=== PATIENT | male | born 1955 | race African-American/Black ===

== ENCOUNTER 2017-06-28 14:11 | Outpatient (CLI) | payer BC | END 2017-06-28 15:53 | disposition home or self-care (01) | LOC: HPC 14:11 | DX: C22.0 Liver cell carcinoma (principal); K43.2 Incisional hernia without obstruction or gangrene | CPT/HCPCS: G0463 ==

== ENCOUNTER 2017-09-08 19:51 | Inpatient (IN) | payer BC ==
[2017-09-08] MEDS: LORAZEPAM 2 MG INJ IV (20:01)
[2017-09-08 20:28] LABS: ADD MAN DIFF? NO
[2017-09-08 20:29] LABS: BASOPHILS % 0.1 % (0.0-2.0); EOSINOPHILS % 0.5 % (0.0-7.0); HEMATOCRIT 30.9 % (42.0-52.0); HEMOGLOBIN 10.3 g/dl (14.0-18.0); LYMPHOCYTES # 0.6 10^3/ul (0.8-2.9); MEAN CORPUSCULAR HEMOGLOBIN 28.2 pg (29.0-33.0); MEAN CORPUSCULAR HGB CONC 33.3 g/dl (32.0-37.0); MEAN CORPUSCULAR VOLUME 84.7 fl (82.0-101.0); MONOCYTE # 0.7 10^3/ul (0.3-0.9); MONOCYTES % 9.3 % (0.0-11.0); NEUTROPHIL # 6.1 10^3/ul (1.6-7.5); NEUTROPHILS % 81.3 % (39.0-77.0); PLATELET COUNT 299 10^3/UL (140-415); RED BLOOD COUNT 3.65 10^6/ul (4.70-6.10); RED CELL DISTRIBUTION WIDTH 15.1 % (11.5-14.5)
[2017-09-08 20:29] LABS: WHITE BLOOD COUNT 7.5 10^3/ul (4.8-10.8)
[2017-09-08 20:51] LABS: ALANINE AMINOTRANSFERASE 92 IU/L (13-69); ALBUMIN 2.9 g/dl (3.3-4.9); ALBUMIN/GLOBULIN RATIO 0.78; ANION GAP 15 (8-16); ASPARTATE AMINO TRANSFERASE 284 IU/L (15-46); BILIRUBIN,INDIRECT 0.4 mg/dl (0-1.1); BILIRUBIN,TOTAL 1.3 mg/dl (0.2-1.3); BLOOD UREA NITROGEN 24 mg/dl (7-20); CALCIUM 8.5 mg/dl (8.4-10.2); CARBON DIOXIDE 27 mmol/L (21-31); CHLORIDE 95 mmol/L (97-110); CREATININE 2.02 mg/dl (0.61-1.24); GLUCOSE 86 mg/dl (70-220); PARTIAL THROMBOPLASTIN TIME 31.3 Sec (25.0-35.0); POTASSIUM 3.4 mmol/L (3.5-5.1); PROTIME 12.2 Sec (11.9-14.9); SODIUM 134 mmol/L (135-144); TOTAL PROTEIN 6.6 g/dl (6.1-8.1)
[2017-09-08 20:53] LABS: LACTIC ACID 4.2 mmol/L (0.5-2.0)
[2017-09-08 21:07] LABS: ALKALINE PHOSPHATASE 2263 IU/L (42-121)
[2017-09-08 21:19] LABS: TROPONIN-I < 0.012 ng/ml (0.00-0.12)
[2017-09-08 21:33] LABS: ADD UMIC YES; UR ASCORBIC ACID NEGATIVE (NEGATIVE); UR BILIRUBIN (Dip) NEGATIVE (NEGATIVE); UR BLOOD (Dip) NEGATIVE (NEGATIVE); UR CLARITY CLEAR (CLEAR); UR COLOR YELLOW (YELLOW); UR GLUCOSE (Dip) 2+ mg/dL (NEGATIVE); UR KETONES (Dip) NEGATIVE (NEGATIVE); UR LEUKOCYTE ESTERASE (Dip) NEGATIVE Leu/ul (NEGATIVE); UR NITRITE (Dip) NEGATIVE (NEGATIVE); UR RBC 0 /HPF (0-5); UR SPECIFIC GRAVITY (Dip) 1.008 (1.003-1.030); UR TOTAL PROTEIN (Dip) 2+ mg/dl (NEGATIVE); UR UROBILINOGEN (Dip) NEGATIVE (NEGATIVE); UR WBC 0 /HPF (0-5)
[2017-09-08 22:32] LABS: AMMONIA 12 umol/l (9-30); LACTIC ACID 1.3 mmol/L (0.5-2.0)
[2017-09-08] MEDS: DEXTROSE 5%-0.9% NACL 1,000 ML IV (22:51)
[2017-09-08] MEDS: DEXTROSE 50% 50 ML SYRINGE IV (22:51)
[2017-09-08] MEDS ORDERED: MAGNESIUM HYDROXIDE 30ML CUP PO (23:30)
[2017-09-08] MEDS ORDERED: morphine 2 MG INJ IV (23:30)
[2017-09-08] MEDS ORDERED: NACL 0.9% 3 ML SYG IV (23:30)
[2017-09-08] MEDS ORDERED: HYDROCODONE/APAP (5/325) TAB PO (23:30)
[2017-09-08] MEDS ORDERED: DOCUSATE SODIUM 100 MG CAP PO (23:30)
[2017-09-08] MEDS ORDERED: GLUCOSE GEL 15 GRAM TUBE PO ×2 (23:45)
[2017-09-08] MEDS ORDERED: DEXTROSE 50% 50 ML SYRINGE IV (23:45)
[2017-09-08] MEDS ORDERED: GLUCAGON 1 MG INJ IM (23:45)
[2017-09-08] MEDS ORDERED: GLUCOSE GEL 15 GRAM TUBE BUCCAL (23:45)
[2017-09-09 00:06] LABS: LACTIC ACID 1.4 mmol/L (0.5-2.0)
[2017-09-09 00:16] LABS: AADO2 Arterial 580.1 mmHg (7.0-24.0); Allen Test ACCEPTAB; Arterial Blood Gas Oxygen Sat 97.1 mmHG (95.0-98.0); Arterial COHb 0.3 % (0.0-3.0); Arterial Fraction of Oxyhgb 96.5 % (93.0-99.0); Arterial MetHb 0.3 % (0.0-1.5); Arterial Total Hemglobin 10.7 g/dl (12.0-18.0); Arterial pCO2 37.6 mmhg (35-45); MODE MASK - NRB; Site Left Radial
[2017-09-09] MEDS: NS + KCL 20 MEQ 1,000 ML IV (00:25)
[2017-09-09] MEDS: LEVETIRACETAM 500 MG (PMX) 100 ML IVPB ×3 (00:25→20:19)
[2017-09-09] MEDS: INSULIN ASPART [NOVOLOG] 3 ML PEN SC ×6 (01:00→20:24)
[2017-09-09] MEDS: DEXTROSE 50% 50 ML SYRINGE IV ×2 (01:26→02:16)
[2017-09-09] MEDS: ACCU-CHEK XX (01:35)
[2017-09-09] MEDS: D5-NS + KCL 20 MEQ 1,000 ML IV (02:08)
[2017-09-09 08:52] LABS: ADD MAN DIFF? NO
[2017-09-09 08:56] LABS: WHITE BLOOD COUNT 16.1 10^3/ul (4.8-10.8)
[2017-09-09 08:56] LABS: BASOPHILS % 0.1 % (0.0-2.0); HEMATOCRIT 27.1 % (42.0-52.0); HEMOGLOBIN 9.1 g/dl (14.0-18.0); LYMPHOCYTES # 0.7 10^3/ul (0.8-2.9); LYMPHOCYTES % 4.6 % (15.0-51.0); MEAN CORPUSCULAR HEMOGLOBIN 27.7 pg (29.0-33.0); MEAN CORPUSCULAR HGB CONC 33.6 g/dl (32.0-37.0); MEAN CORPUSCULAR VOLUME 82.6 fl (82.0-101.0); MEAN PLATELET VOLUME 9.5 fl (7.4-10.4); MONOCYTE # 0.9 10^3/ul (0.3-0.9); MONOCYTES % 5.6 % (0.0-11.0); NEUTROPHIL # 14.4 10^3/ul (1.6-7.5); NEUTROPHILS % 89.1 % (39.0-77.0); PLATELET COUNT 296 10^3/UL (140-415); RED BLOOD COUNT 3.28 10^6/ul (4.70-6.10)
[2017-09-09] MEDS: DEXTROSE 5%-0.9% NACL 1,000 ML IV ×2 (09:00→12:55)
[2017-09-09 09:24] LABS: LACTIC ACID 1.4 mmol/L (0.5-2.0)
[2017-09-09 09:24] LABS: AMMONIA 13 umol/l (9-30)
[2017-09-09 09:25] LABS: ALANINE AMINOTRANSFERASE 81 IU/L (13-69); ALBUMIN 2.2 g/dl (3.3-4.9); ALBUMIN/GLOBULIN RATIO 0.73; ANION GAP 9 (8-16); ASPARTATE AMINO TRANSFERASE 205 IU/L (15-46); BILIRUBIN,INDIRECT 0.1 mg/dl (0-1.1); BILIRUBIN,TOTAL 0.3 mg/dl (0.2-1.3); BLOOD UREA NITROGEN 22 mg/dl (7-20); CALCIUM 7.7 mg/dl (8.4-10.2); CARBON DIOXIDE 30 mmol/L (21-31); CHLORIDE 102 mmol/L (97-110); CREATININE 1.78 mg/dl (0.61-1.24); GLUCOSE 90 mg/dl (70-220); IRON 19 ug/dl (35-150); SODIUM 137 mmol/L (135-144); TOTAL PROTEIN 5.2 g/dl (6.1-8.1)
[2017-09-09 09:28] LABS: PHOSPHORUS 2.4 mg/dl (2.5-4.9)
[2017-09-09 09:28] LABS: MAGNESIUM 1.8 mg/dl (1.7-2.5)
[2017-09-09 09:33] LABS: ALKALINE PHOSPHATASE 1836 IU/L (42-121)
[2017-09-09 09:35] LABS: % IRON SATURATION 8 % SAT (22-52); TOTAL IRON BINDING CAPACITY 240 ug/dl (241-421)
[2017-09-09 09:53] LABS: HEMOGLOBIN A1C 7.8 % (0-5.9)
[2017-09-09] MEDS: SOD FERRIC GLUC COMPLX 125 MG in SOD CHLORIDE 0.9% 100 ML IVPB (18:29)
[2017-09-09] MEDS: DEXAMETHASONE 4 MG/ML 1 ML INJ IV (19:06)
[2017-09-09] MEDS ORDERED: VANCOMYCIN IV PER PHARMACY XX (20:00)
[2017-09-09] MEDS: VANCOMYCIN 2 GM in SOD CHLORIDE 0.9% 500 ML IVPB (22:39)
[2017-09-10] MEDS: DEXAMETHASONE 4 MG/ML 1 ML INJ IV ×5 (00:28→23:21)
[2017-09-10] MEDS: INSULIN ASPART [NOVOLOG] 3 ML PEN SC ×6 (01:00→20:24)
[2017-09-10] MEDS: DEXTROSE 5%-0.9% NACL 1,000 ML IV ×2 (01:20→17:38)
[2017-09-10] MEDS: ACCU-CHEK XX (02:00)
[2017-09-10] MEDS: PANTOPRAZOLE 40 MG INJ IV (05:16)
[2017-09-10] MEDS: LEVETIRACETAM 500 MG (PMX) 100 ML IVPB ×2 (08:31→20:23)
[2017-09-10] MEDS: LORAZEPAM 2 MG INJ IV (10:39)
[2017-09-10 11:14] LABS: ADD MAN DIFF? NO
[2017-09-10 11:18] LABS: ABNORMAL IP MESSAGE 1; BASOPHILS % 0.1 % (0.0-2.0); HEMATOCRIT 29.5 % (42.0-52.0); HEMOGLOBIN 9.6 g/dl (14.0-18.0); LYMPHOCYTES # 0.5 10^3/ul (0.8-2.9); LYMPHOCYTES % 6.4 % (15.0-51.0); MEAN CORPUSCULAR HEMOGLOBIN 27.7 pg (29.0-33.0); MEAN CORPUSCULAR HGB CONC 32.5 g/dl (32.0-37.0); MEAN CORPUSCULAR VOLUME 85.3 fl (82.0-101.0); MEAN PLATELET VOLUME 9.5 fl (7.4-10.4); MONOCYTE # 0.2 10^3/ul (0.3-0.9); MONOCYTES % 2.9 % (0.0-11.0); NEUTROPHIL # 6.9 10^3/ul (1.6-7.5); NEUTROPHILS % 90.1 % (39.0-77.0); PLATELET COUNT 349 10^3/UL (140-415); POSITIVE DIFF @See below; RED BLOOD COUNT 3.46 10^6/ul (4.70-6.10); RED CELL DISTRIBUTION WIDTH 15.2 % (11.5-14.5)
[2017-09-10 11:18] LABS: WHITE BLOOD COUNT 7.7 10^3/ul (4.8-10.8)
[2017-09-10 11:34] LABS: ANION GAP 16 (8-16); BLOOD UREA NITROGEN 21 mg/dl (7-20); CALCIUM 8.4 mg/dl (8.4-10.2); CARBON DIOXIDE 24 mmol/L (21-31); CHLORIDE 101 mmol/L (97-110); CREATININE 1.69 mg/dl (0.61-1.24); GLUCOSE 222 mg/dl (70-220); POTASSIUM 4.1 mmol/L (3.5-5.1); SODIUM 137 mmol/L (135-144)
[2017-09-10] MEDS: hydrALAzine 20 MG INJ IV (12:50)
[2017-09-10] MEDS: SOD FERRIC GLUC COMPLX 125 MG in SOD CHLORIDE 0.9% 100 ML IVPB (17:35)
[2017-09-10 19:55] LABS: ALPHA FETOPROTEIN 3.89 IU/L (0.00-7.21)
[2017-09-10 20:08] LABS: FOLATE 5.5 ng/ml (2.8-20.0)
[2017-09-11] MEDS: INSULIN ASPART [NOVOLOG] 3 ML PEN SC ×6 (01:18→21:33)
[2017-09-11] MEDS: ACCU-CHEK XX (01:23)
[2017-09-11] MEDS: LABETALOL HCL 20MG INJ IV (04:19)
[2017-09-11] MEDS: DEXAMETHASONE 4 MG/ML 1 ML INJ IV ×3 (05:11→18:44)
[2017-09-11] MEDS: PANTOPRAZOLE 40 MG INJ IV (05:11)
[2017-09-11 06:12] LABS: ADD MAN DIFF? NO
[2017-09-11 06:16] LABS: WHITE BLOOD COUNT 8.3 10^3/ul (4.8-10.8)
[2017-09-11 06:16] LABS: ABNORMAL IP MESSAGE 1; BASOPHILS % 0.1 % (0.0-2.0); HEMATOCRIT 26.7 % (42.0-52.0); LYMPHOCYTES # 0.5 10^3/ul (0.8-2.9); LYMPHOCYTES % 5.4 % (15.0-51.0); MEAN CORPUSCULAR HEMOGLOBIN 27.7 pg (29.0-33.0); MEAN CORPUSCULAR HGB CONC 33.7 g/dl (32.0-37.0); MEAN CORPUSCULAR VOLUME 82.2 fl (82.0-101.0); MONOCYTE # 0.5 10^3/ul (0.3-0.9); MONOCYTES % 6.4 % (0.0-11.0); NEUTROPHIL # 7.2 10^3/ul (1.6-7.5); NEUTROPHILS % 87.3 % (39.0-77.0); PLATELET COUNT 388 10^3/UL (140-415); POSITIVE DIFF @See below; RED BLOOD COUNT 3.25 10^6/ul (4.70-6.10)
[2017-09-11 06:48] LABS: VANCOMYCIN,RANDOM 12.1 ug/ml
[2017-09-11 06:52] LABS: ANION GAP 15 (8-16); BLOOD UREA NITROGEN 34 mg/dl (7-20); CALCIUM 8.3 mg/dl (8.4-10.2); CARBON DIOXIDE 22 mmol/L (21-31); CHLORIDE 107 mmol/L (97-110); CREATININE 1.95 mg/dl (0.61-1.24); GLUCOSE 319 mg/dl (70-220); SODIUM 140 mmol/L (135-144)
[2017-09-11] MEDS: hydrALAzine 20 MG INJ IV (08:27)
[2017-09-11] MEDS: LEVETIRACETAM 500 MG (PMX) 100 ML IVPB (08:28)
[2017-09-11] MEDS: VANCOMYCIN 1 GM 250 ML IVPB (12:46)
[2017-09-11] MEDS ORDERED: ALBUMIN HUMAN 25% 50 ML IV (13:30)
[2017-09-11] MEDS ORDERED: SODIUM CHLORIDE 0.9% 1L BAG IV (13:30)
[2017-09-11] MEDS ORDERED: IOHEXOL 300MG/ML 150 ML BTL (15:25)
[2017-09-11] MEDS ORDERED: SOD CHLORIDE 0.9% 100 ML (15:25)
[2017-09-11] MEDS: SOD FERRIC GLUC COMPLX 125 MG in SOD CHLORIDE 0.9% 100 ML IVPB (18:46)
[2017-09-11 20:26] LABS: HEPATITIS B SURFACE ANTIGEN NEGATIVE (NEGATIVE)
[2017-09-11] MEDS: LEVETIRACETAM 500 MG TAB PO (20:40)
[2017-09-12 00:02] LABS: HEPATITIS B SURFACE ANTIBODY NEGATIVE (NEGATIVE)
[2017-09-12] MEDS: DEXAMETHASONE 4 MG/ML 1 ML INJ IV ×4 (00:44→18:34)
[2017-09-12] MEDS: HEPARIN 1000 UNITS/ML 10 ML INJ CATHETER (00:47)
[2017-09-12] MEDS: ACCU-CHEK XX (02:00)
[2017-09-12 02:06] LABS: PROTEIN, TOTAL 5.7 g/dL (6.1-8.1)
[2017-09-12] MEDS: INSULIN ASPART [NOVOLOG] 3 ML PEN SC ×6 (02:12→21:25)
[2017-09-12] MEDS: LABETALOL HCL 20MG INJ IV ×3 (03:53→10:32)
[2017-09-12 06:44] LABS: ADD MAN DIFF? NO
[2017-09-12 06:50] LABS: WHITE BLOOD COUNT 12.9 10^3/ul (4.8-10.8)
[2017-09-12 06:50] LABS: ABNORMAL IP MESSAGE 1; BASOPHILS % 0.2 % (0.0-2.0); HEMATOCRIT 25.5 % (42.0-52.0); HEMOGLOBIN 8.5 g/dl (14.0-18.0); LYMPHOCYTES # 0.5 10^3/ul (0.8-2.9); LYMPHOCYTES % 3.7 % (15.0-51.0); MEAN CORPUSCULAR HEMOGLOBIN 27.6 pg (29.0-33.0); MEAN CORPUSCULAR HGB CONC 33.3 g/dl (32.0-37.0); MEAN CORPUSCULAR VOLUME 82.8 fl (82.0-101.0); MEAN PLATELET VOLUME 9.3 fl (7.4-10.4); MONOCYTE # 0.8 10^3/ul (0.3-0.9); MONOCYTES % 6.4 % (0.0-11.0); NEUTROPHIL # 11.5 10^3/ul (1.6-7.5); NEUTROPHILS % 89.2 % (39.0-77.0); PLATELET COUNT 409 10^3/UL (140-415); POSITIVE DIFF @See below; RED BLOOD COUNT 3.08 10^6/ul (4.70-6.10); RED CELL DISTRIBUTION WIDTH 15.1 % (11.5-14.5)
[2017-09-12 07:15] LABS: ANION GAP 13 (8-16); BLOOD UREA NITROGEN 22 mg/dl (7-20); CALCIUM 7.8 mg/dl (8.4-10.2); CARBON DIOXIDE 28 mmol/L (21-31); CHLORIDE 104 mmol/L (97-110); CREATININE 1.42 mg/dl (0.61-1.24); GLUCOSE 235 mg/dl (70-220); SODIUM 141 mmol/L (135-144)
[2017-09-12] MEDS: LEVETIRACETAM 500 MG TAB PO ×2 (09:19→21:23)
[2017-09-12] MEDS: ONDANSETRON 4 MG INJ IV (11:57)
[2017-09-12] MEDS: PANTOPRAZOLE 40 MG INJ IV (15:49)
[2017-09-12 16:26] LABS: ALPHA-1-GLOBULINS 0.6 g/dL (0.2-0.3); ALPHA-2-GLOBULINS 1.3 g/dL (0.5-0.9); BETA 2 GLOBULINS 0.5 g/dL (0.2-0.5); BETA GLOBULINS 0.4 g/dL (0.4-0.6); GAMMA GLOBULINS 0.9 g/dL (0.8-1.7)
[2017-09-12] MEDS: ATORVASTATIN 20 MG TAB PO (21:23)
[2017-09-13] MEDS: INSULIN ASPART [NOVOLOG] 3 ML PEN SC ×6 (01:16→20:04)
[2017-09-13] MEDS: ACCU-CHEK XX (01:21)
[2017-09-13] MEDS: PANTOPRAZOLE (EC) 40 MG TAB PO ×2 (05:41→18:01)
[2017-09-13] MEDS ORDERED: SODIUM CHLORIDE 0.9% 1L BAG IV (06:00)
[2017-09-13] MEDS ORDERED: PANTOPRAZOLE 40 MG INJ IV (06:00)
[2017-09-13] MEDS ORDERED: ALBUMIN HUMAN 25% 50 ML IV (06:00)
[2017-09-13 06:17] LABS: ADD MAN DIFF? NO
[2017-09-13 06:20] LABS: ABNORMAL IP MESSAGE 1; HEMATOCRIT 23.1 % (42.0-52.0); HEMOGLOBIN 7.8 g/dl (14.0-18.0); LYMPHOCYTES # 0.5 10^3/ul (0.8-2.9); LYMPHOCYTES % 5.2 % (15.0-51.0); MEAN CORPUSCULAR HGB CONC 33.8 g/dl (32.0-37.0); MEAN CORPUSCULAR VOLUME 82.8 fl (82.0-101.0); MEAN PLATELET VOLUME 9.6 fl (7.4-10.4); MONOCYTES % 10.6 % (0.0-11.0); NEUTROPHIL # 7.6 10^3/ul (1.6-7.5); NEUTROPHILS % 83.5 % (39.0-77.0); PLATELET COUNT 313 10^3/UL (140-415); POSITIVE DIFF @See below; RED BLOOD COUNT 2.79 10^6/ul (4.70-6.10); RED CELL DISTRIBUTION WIDTH 15.2 % (11.5-14.5)
[2017-09-13 06:51] LABS: ANION GAP 15 (8-16); BLOOD UREA NITROGEN 36 mg/dl (7-20); CALCIUM 7.5 mg/dl (8.4-10.2); CARBON DIOXIDE 27 mmol/L (21-31); CHLORIDE 100 mmol/L (97-110); CREATININE 2.21 mg/dl (0.61-1.24); GLUCOSE 255 mg/dl (70-220); POTASSIUM 3.9 mmol/L (3.5-5.1); SODIUM 138 mmol/L (135-144)
[2017-09-13] MEDS: LEVETIRACETAM 500 MG TAB PO ×2 (08:06→20:02)
[2017-09-13] MEDS: LISINOPRIL 20 MG TAB PO (09:00)
[2017-09-13] MEDS ORDERED: DIPHENHYDRAMINE 50 MG INJ IV (12:15)
[2017-09-13] MEDS: SUCRALFATE (100 MG/ML) 10ML CUP PO ×3 (13:10→20:02)
[2017-09-13] MEDS: ONDANSETRON 4 MG INJ IV (15:23)
[2017-09-13] MEDS: VANCOMYCIN 1 GM 250 ML IVPB (18:46)
[2017-09-13] MEDS ORDERED: hydrALAzine 20 MG INJ IV (20:00)
[2017-09-13] MEDS: ATORVASTATIN 20 MG TAB PO (20:02)
[2017-09-14] MEDS: INSULIN ASPART [NOVOLOG] 3 ML PEN SC ×7 (01:33→22:33)
[2017-09-14] MEDS: ACCU-CHEK XX (01:34)
[2017-09-14] MEDS: PANTOPRAZOLE (EC) 40 MG TAB PO ×2 (05:10→17:43)
[2017-09-14] MEDS: CEFTRIAXONE 1 GM/50 ML (PMX) 50 ML IVPB (05:10)
[2017-09-14 06:30] LABS: ADD MAN DIFF? NO
[2017-09-14 06:42] LABS: ABNORMAL IP MESSAGE 1; BASOPHILS % 0.1 % (0.0-2.0); EOSINOPHILS % 0.1 % (0.0-7.0); HEMATOCRIT 26.5 % (42.0-52.0); HEMOGLOBIN 8.7 g/dl (14.0-18.0); LYMPHOCYTES # 0.4 10^3/ul (0.8-2.9); LYMPHOCYTES % 4.4 % (15.0-51.0); MEAN CORPUSCULAR HEMOGLOBIN 27.5 pg (29.0-33.0); MEAN CORPUSCULAR HGB CONC 32.8 g/dl (32.0-37.0); MEAN CORPUSCULAR VOLUME 83.9 fl (82.0-101.0); MEAN PLATELET VOLUME 9.7 fl (7.4-10.4); MONOCYTE # 0.5 10^3/ul (0.3-0.9); MONOCYTES % 5.6 % (0.0-11.0); NEUTROPHIL # 8.1 10^3/ul (1.6-7.5); NEUTROPHILS % 88.6 % (39.0-77.0); PLATELET COUNT 304 10^3/UL (140-415); POSITIVE DIFF @See below; RED BLOOD COUNT 3.16 10^6/ul (4.70-6.10); RED CELL DISTRIBUTION WIDTH 15.3 % (11.5-14.5)
[2017-09-14 06:42] LABS: WHITE BLOOD COUNT 9.2 10^3/ul (4.8-10.8)
[2017-09-14 07:04] LABS: ANION GAP 13 (8-16); BLOOD UREA NITROGEN 21 mg/dl (7-20); CALCIUM 8.2 mg/dl (8.4-10.2); CARBON DIOXIDE 27 mmol/L (21-31); CHLORIDE 98 mmol/L (97-110); CREATININE 1.79 mg/dl (0.61-1.24); GLUCOSE 265 mg/dl (70-220); POTASSIUM 3.9 mmol/L (3.5-5.1); SODIUM 134 mmol/L (135-144)
[2017-09-14] MEDS: LISINOPRIL 20 MG TAB PO (08:57)
[2017-09-14] MEDS: SUCRALFATE (100 MG/ML) 10ML CUP PO ×4 (08:57→22:23)
[2017-09-14] MEDS: LEVETIRACETAM 500 MG TAB PO (08:57)
[2017-09-14] MEDS: INSULIN GLARGINE [LANtus] 3 ML PEN SC ×2 (13:24→22:29)
[2017-09-14] MEDS: ACETAMINOPHEN 325 MG TAB PO (14:45)
[2017-09-14] MEDS: HYPOGLYCEMIA PROTOCOL when Glucose is <70 mg/dL or symptomatic <90 mg/dL. XX (16:30)
[2017-09-14] MEDS: Discontinue current oral sulfonylureas (glyburide, glipizide, and/or glimepiride) prior to XX (16:30)
[2017-09-14] MEDS ORDERED: INSULIN ASPART [NOVOLOG] 3 ML PEN SC (18:00)
[2017-09-14] MEDS: ATORVASTATIN 20 MG TAB PO (22:23)
[2017-09-14] MEDS ORDERED: LEVETIRACETAM 250 MG TAB PO (23:00)
[2017-09-15] MEDS: LEVETIRACETAM 750 MG TAB PO ×3 (01:58→21:47)
[2017-09-15] MEDS: ACCU-CHEK XX (02:03)
[2017-09-15] MEDS: CEFTRIAXONE 1 GM/50 ML (PMX) 50 ML IVPB (05:59)
[2017-09-15] MEDS: PANTOPRAZOLE (EC) 40 MG TAB PO ×2 (06:00→17:28)
[2017-09-15 06:35] LABS: WHITE BLOOD COUNT 5.9 10^3/ul (4.8-10.8)
[2017-09-15 06:35] LABS: ABNORMAL IP MESSAGE 1; HEMATOCRIT 25.5 % (42.0-52.0); HEMOGLOBIN 8.3 g/dl (14.0-18.0); MEAN CORPUSCULAR HEMOGLOBIN 27.2 pg (29.0-33.0); MEAN CORPUSCULAR HGB CONC 32.5 g/dl (32.0-37.0); MEAN CORPUSCULAR VOLUME 83.6 fl (82.0-101.0); MEAN PLATELET VOLUME 9.8 fl (7.4-10.4); PLATELET COUNT 189 10^3/UL (140-415); POSITIVE DIFF @See below; RED BLOOD COUNT 3.05 10^6/ul (4.70-6.10); RED CELL DISTRIBUTION WIDTH 15.7 % (11.5-14.5)
[2017-09-15 06:38] LABS: ADD MAN DIFF? YES
[2017-09-15 07:11] LABS: ANION GAP 12 (8-16); ANISOCYTOSIS 1+ (0-0); BAND NEUTROPHILS #M 0.3 10^3/ul (0.0-0.6); BAND NEUTROPHILS % (M) 6 % (0-4); BLOOD UREA NITROGEN 27 mg/dl (7-20); BURR CELLS 1+ (0-0); CALCIUM 7.8 mg/dl (8.4-10.2); CARBON DIOXIDE 29 mmol/L (21-31); CHLORIDE 98 mmol/L (97-110); CREATININE 2.27 mg/dl (0.61-1.24); GLUCOSE 203 mg/dl (70-220); LYMPHOCYTES #M 0.2 10^3/ul (0.8-2.9); LYMPHOCYTES % (M) 4 % (15-51); MONOCYTE #M 0.3 10^3/ul (0.3-0.9); MONOCYTES % (M) 6 % (0-11); PLATELET ESTIMATE NORMAL; POIKILOCYTOSIS 1+ (0-0); POLYCHROMASIA 3+ (0-0); POTASSIUM 3.5 mmol/L (3.5-5.1); SEGMENTED NEUTROPHILS (M) % 84 % (39-77); SMUDGE%M 8 % (0-0); SODIUM 135 mmol/L (135-144)
[2017-09-15] MEDS: LISINOPRIL 20 MG TAB PO (08:15)
[2017-09-15] MEDS: SUCRALFATE (100 MG/ML) 10ML CUP PO ×4 (08:15→21:47)
[2017-09-15] MEDS: INSULIN ASPART [NOVOLOG] 3 ML PEN SC ×7 (08:17→21:53)
[2017-09-15] MEDS: CIPROFLOXACIN 500 MG TAB PO ×2 (11:35→21:47)
[2017-09-15 17:38] LABS: VANCOMYCIN,TROUGH 7.4 ug/ml (10.0-20.0)
[2017-09-15] MEDS: VANCOMYCIN 1 GM 250 ML IVPB (18:06)
[2017-09-15] MEDS: ATORVASTATIN 20 MG TAB PO (21:47)
[2017-09-15] MEDS: INSULIN GLARGINE [LANtus] 3 ML PEN SC (21:53)
[2017-09-16] MEDS: ACETAMINOPHEN 325 MG TAB PO (01:41)
[2017-09-16] MEDS: ACCU-CHEK XX (01:45)
[2017-09-16] MEDS: CIPROFLOXACIN 500 MG TAB PO ×2 (05:58→17:33)
[2017-09-16] MEDS: PANTOPRAZOLE (EC) 40 MG TAB PO ×2 (05:58→17:33)
[2017-09-16] MEDS: INSULIN ASPART [NOVOLOG] 3 ML PEN SC ×7 (10:00→20:11)
[2017-09-16] MEDS: SUCRALFATE (100 MG/ML) 10ML CUP PO ×4 (10:07→20:16)
[2017-09-16] MEDS: LEVETIRACETAM 750 MG TAB PO ×2 (10:07→20:16)
[2017-09-16] MEDS: LISINOPRIL 20 MG TAB PO (10:09)
[2017-09-16] MEDS: HEPARIN 1000 UNITS/ML 10 ML INJ CATHETER (14:11)
[2017-09-16] MEDS: VANCOMYCIN 1.5 GM in SOD CHLORIDE 0.9% 250 ML IVPB (17:34)
[2017-09-16] MEDS: INSULIN GLARGINE [LANtus] 3 ML PEN SC (20:13)
[2017-09-16] MEDS: ATORVASTATIN 20 MG TAB PO (20:16)
[2017-09-17] MEDS: ACCU-CHEK XX (02:00)
[2017-09-17] MEDS: PANTOPRAZOLE (EC) 40 MG TAB PO ×2 (05:27→18:02)
[2017-09-17] MEDS: CIPROFLOXACIN 500 MG TAB PO ×2 (05:27→18:02)
[2017-09-17] MEDS: INSULIN ASPART [NOVOLOG] 3 ML PEN SC ×6 (09:24→17:58)
[2017-09-17] MEDS: SUCRALFATE (100 MG/ML) 10ML CUP PO ×3 (09:32→18:02)
[2017-09-17] MEDS: LEVETIRACETAM 750 MG TAB PO (09:33)
[2017-09-17] MEDS: LISINOPRIL 20 MG TAB PO (09:34)
[2017-09-17] MEDS: HEPARIN 1000 UNITS/ML 10 ML INJ CATHETER (10:33)
[2017-09-17] MEDS ORDERED: VANCOMYCIN 1.25 GM in SOD CHLORIDE 0.9% 250 ML IVPB (14:00)
== END 2017-09-17 19:30 | disposition home or self-care (01) | DRG 64 ==
LOC: TEL 22:45 → MS1 09-10 14:24 → MS2 09-13 01:04 → E/R 19:51 → TEL 09-10 14:24
PROC: 5A1D70Z Performance of Urinary Filtration, Intermittent, Less than 6 Hours Per Day (ICD-10-PCS; principal; 2017-09-11)
PROC: 5A1D70Z Performance of Urinary Filtration, Intermittent, Less than 6 Hours Per Day (ICD-10-PCS; 2017-09-13)
DX: I61.1 Nontraumatic intracerebral hemorrhage in hemisphere, cortical (principal); G93.49 Other encephalopathy; N18.6 End stage renal disease; G93.6 Cerebral edema; C22.0 Liver cell carcinoma; I12.0 Hypertensive chronic kidney disease with stage 5 chronic kidney disease or end stage renal disease; R78.81 Bacteremia; Z99.2 Dependence on renal dialysis; D64.9 Anemia, unspecified; R56.9 Unspecified convulsions; Z87.891 Personal history of nicotine dependence; E11.22 Type 2 diabetes mellitus with diabetic chronic kidney disease; E78.00 Pure hypercholesterolemia, unspecified; E88.09 Other disorders of plasma-protein metabolism, not elsewhere classified; E11.649 Type 2 diabetes mellitus with hypoglycemia without coma; Z87.820 Personal history of traumatic brain injury; K21.9 Gastro-esophageal reflux disease without esophagitis; Z79.4 Long term (current) use of insulin; E78.5 Hyperlipidemia, unspecified; B95.7 Other staphylococcus as the cause of diseases classified elsewhere; B96.89 Other specified bacterial agents as the cause of diseases classified elsewhere
CPT/HCPCS: 36415; 36600; 70450; 70470; 70544; 70551; 71045; 80048; 80053; 80202; 81001; 82105; 82140; 82607; 82728; 82746; 82803; 82962; 83036; 83540; 83605; 83735; 84100; 84155; 84165; 84484; 85025; 85610; 85730; 86301; 86320; 86706; 87040; 87086; 87340; 90935; 92526; 92610; 93005; 95819; 96374; 96375; 96376; 97110; 97116; 97161; 97530; 99291-25

== ENCOUNTER 2017-09-18 20:53 | Emergency (ER) | payer BC ==
[2017-09-19] MEDS: VANCOMYCIN 1.25 GM in SOD CHLORIDE 0.9% 250 ML IVPB (00:24)
[2017-09-19 00:49] LABS: ANION GAP 9 (8-16); BLOOD UREA NITROGEN 25 mg/dl (7-20); CARBON DIOXIDE 27 mmol/L (21-31); CHLORIDE 101 mmol/L (97-110); CREATININE 2.61 mg/dl (0.61-1.24); POTASSIUM 3.8 mmol/L (3.5-5.1); SODIUM 133 mmol/L (135-144)
[2017-09-19 00:56] LABS: VANCOMYCIN,TROUGH 11.9 ug/ml (10.0-20.0)
[2017-09-19 01:08] LABS: GLUCOSE 31 mg/dl (70-220)
[2017-09-19] MEDS ORDERED: DEXTROSE 50% 50 ML SYRINGE (01:50)
[2017-09-19] MEDS: DEXTROSE 50% 50 ML SYRINGE IV (02:13)
[2017-09-19] MEDS: DEXTROSE 5% 1,000 ML IV (04:00)
== END 2017-09-19 05:41 | disposition home or self-care (01) ==
LOC: FTE 20:53
DX: E11.649 Type 2 diabetes mellitus with hypoglycemia without coma (principal); I10 Essential (primary) hypertension; F17.210 Nicotine dependence, cigarettes, uncomplicated; Z79.4 Long term (current) use of insulin; Z79.82 Long term (current) use of aspirin
CPT/HCPCS: 80048; 80202; 82962; 96374; 96375; 99284-25

== ENCOUNTER 2017-09-20 10:34 | Inpatient (IN) | payer BC, OTHER ==
[2017-09-20] MEDS: VANCOMYCIN 1 GM (PMX) 250 ML IVPB (11:00)
[2017-09-20 11:36] LABS: ABNORMAL IP MESSAGE 1; HEMATOCRIT 23.7 % (42.0-52.0); HEMOGLOBIN 7.9 g/dl (14.0-18.0); MEAN CORPUSCULAR HEMOGLOBIN 27.2 pg (29.0-33.0); MEAN CORPUSCULAR HGB CONC 33.3 g/dl (32.0-37.0); MEAN CORPUSCULAR VOLUME 81.7 fl (82.0-101.0); MEAN PLATELET VOLUME 9.5 fl (7.4-10.4); PLATELET COUNT 303 10^3/UL (140-415); POSITIVE DIFF @See below
[2017-09-20 11:36] LABS: WHITE BLOOD COUNT 13.6 10^3/ul (4.8-10.8)
[2017-09-20] MEDS: CEFEPIME 2GM/50 ML (PMX) 50 ML IVPB (11:36)
[2017-09-20 11:40] LABS: ADD MAN DIFF? YES
[2017-09-20 11:53] LABS: LACTIC ACID 1.5 mmol/L (0.5-2.0)
[2017-09-20 11:57] LABS: ALANINE AMINOTRANSFERASE 110 IU/L (13-69); ALBUMIN 2.3 g/dl (3.3-4.9); ALBUMIN/GLOBULIN RATIO 0.71; ANION GAP 12 (8-16); ASPARTATE AMINO TRANSFERASE 343 IU/L (15-46); BILIRUBIN,INDIRECT 0.3 mg/dl (0-1.1); BILIRUBIN,TOTAL 0.8 mg/dl (0.2-1.3); BLOOD UREA NITROGEN 23 mg/dl (7-20); CALCIUM 7.4 mg/dl (8.4-10.2); CARBON DIOXIDE 23 mmol/L (21-31); CHLORIDE 100 mmol/L (97-110); CREATININE 2.55 mg/dl (0.61-1.24); GLUCOSE 134 mg/dl (70-220); POTASSIUM 3.2 mmol/L (3.5-5.1); SODIUM 132 mmol/L (135-144); TOTAL PROTEIN 5.5 g/dl (6.1-8.1)
[2017-09-20 12:04] LABS: PARTIAL THROMBOPLASTIN TIME 38.3 Sec (25.0-35.0); PROTIME 13.3 Sec (11.9-14.9)
[2017-09-20 12:09] LABS: ALKALINE PHOSPHATASE 1988 IU/L (42-121); TROPONIN-I < 0.012 ng/ml (0.00-0.12)
[2017-09-20] MEDS ORDERED: ACETAMINOPHEN 325 MG TAB PO (12:30)
[2017-09-20 12:48] LABS: ANISOCYTOSIS 1+ (0-0); BAND NEUTROPHILS #M 0.2 10^3/ul (0.0-0.6); BAND NEUTROPHILS % (M) 2 % (0-4); HYPOCHROMASIA 1+ (0-0); LYMPHOCYTES #M 1.7 10^3/ul (0.8-2.9); LYMPHOCYTES % (M) 13 % (15-51); MONOCYTE #M 0.9 10^3/ul (0.3-0.9); MONOCYTES % (M) 7 % (0-11); PLATELET ESTIMATE NORMAL; POLYCHROMASIA 3+ (0-0); SEG NEUT #M 10.6 10^3/ul (1.6-7.5); SEGMENTED NEUTROPHILS (M) % 78 % (39-77); SMUDGE%M 3 % (0-0)
[2017-09-20] MEDS ORDERED: hydrALAzine 20 MG INJ IV (13:00)
[2017-09-20] MEDS ORDERED: ALBUTEROL/IPRATROPIUM (NEB) 3 ML AMP HHN (13:00)
[2017-09-20] MEDS ORDERED: NITROGLYCERIN (SL) 0.4 MG TAB SL (13:00)
[2017-09-20] MEDS ORDERED: NA PHOSPHATE/BIPHOS 133 ML ENEMA PR (13:00)
[2017-09-20] MEDS ORDERED: MAGNESIUM HYDROXIDE 30ML CUP PO (13:00)
[2017-09-20] MEDS ORDERED: NACL 0.9% 3 ML SYG IV (13:00)
[2017-09-20] MEDS ORDERED: DOCUSATE SODIUM 100 MG CAP PO (13:00)
[2017-09-20] MEDS ORDERED: GLUCOSE GEL 15 GRAM TUBE BUCCAL (14:00)
[2017-09-20] MEDS ORDERED: DEXTROSE 50% 50 ML SYRINGE IV ×2 (14:00)
[2017-09-20] MEDS ORDERED: GLUCOSE GEL 15 GRAM TUBE PO ×2 (14:00)
[2017-09-20] MEDS ORDERED: GLUCAGON 1 MG INJ IM (14:00)
[2017-09-20 14:20] LABS: FREE T4 (FREE THYROXINE) 2.42 ng/dl (0.78-2.44)
[2017-09-20] MEDS: ONDANSETRON 4 MG INJ IV (15:21)
[2017-09-20] MEDS: morphine 2 MG INJ IV (15:21)
[2017-09-20] MEDS ORDERED: VANCOMYCIN IV PER PHARMACY XX (16:00)
[2017-09-20] MEDS ORDERED: CIPROFLOXACIN 400MG/D5W 200 ML IVPB (16:00)
[2017-09-20] MEDS ORDERED: morphine 4 MG/ML VIAL (16:47)
[2017-09-20] MEDS: morphine 4 MG/ML VIAL IV ×2 (17:31→17:32)
[2017-09-20] MEDS: METOCLOPRAMIDE 10 MG INJ IV (17:55)
[2017-09-20] MEDS ORDERED: CIPROFLOXACIN 500 MG TAB PO (18:00)
[2017-09-20 20:01] LABS: LACTIC ACID 0.8 mmol/L (0.5-2.0)
[2017-09-20] MEDS: SUCRALFATE 1 GM TAB PO (20:28)
[2017-09-20] MEDS: INSULIN REGULAR, HUMAN 100 UNIT/1 ML 3ML VIAL SC (21:00)
[2017-09-20] MEDS: NPH, HUMAN INSULIN ISOPHANE 3ML VIAL SC (21:00)
[2017-09-20 22:03] LABS: LACTIC ACID 1.2 mmol/L (0.5-2.0)
[2017-09-20] MEDS: ATORVASTATIN 20 MG TAB PO (23:05)
[2017-09-20] MEDS: HEPARIN 5,000 UNIT/0.5 ML VIAL SC (23:06)
[2017-09-20] MEDS: LEVETIRACETAM 750 MG TAB PO (23:13)
[2017-09-20 23:52] LABS: LACTIC ACID 1.3 mmol/L (0.5-2.0)
[2017-09-21] MEDS: INSULIN ASPART [NOVOLOG] 3 ML PEN SC ×6 (01:33→22:13)
[2017-09-21] MEDS: ACCU-CHEK XX (02:00)
[2017-09-21 03:11] LABS: LACTIC ACID 1.2 mmol/L (0.5-2.0)
[2017-09-21 05:25] LABS: HEPATITIS B SURFACE ANTIGEN NEGATIVE (NEGATIVE)
[2017-09-21 05:39] LABS: ADD MAN DIFF? NO
[2017-09-21 05:46] LABS: BASOPHILS % 0.1 % (0.0-2.0); EOSINOPHILS # 0.1 10^3/ul (0.0-0.5); EOSINOPHILS % 0.5 % (0.0-7.0); HEMATOCRIT 23.7 % (42.0-52.0); LYMPHOCYTES # 0.9 10^3/ul (0.8-2.9); LYMPHOCYTES % 6.9 % (15.0-51.0); MEAN CORPUSCULAR HEMOGLOBIN 26.8 pg (29.0-33.0); MEAN CORPUSCULAR HGB CONC 33.8 g/dl (32.0-37.0); MEAN CORPUSCULAR VOLUME 79.3 fl (82.0-101.0); MEAN PLATELET VOLUME 9.4 fl (7.4-10.4); MONOCYTE # 1.1 10^3/ul (0.3-0.9); NEUTROPHIL # 11.3 10^3/ul (1.6-7.5); PLATELET COUNT 407 10^3/UL (140-415); RED BLOOD COUNT 2.99 10^6/ul (4.70-6.10)
[2017-09-21 05:46] LABS: WHITE BLOOD COUNT 13.6 10^3/ul (4.8-10.8)
[2017-09-21] MEDS: SUCRALFATE 1 GM TAB PO ×4 (06:00→17:17)
[2017-09-21 06:08] LABS: VANCOMYCIN,RANDOM 12.9 ug/ml
[2017-09-21 06:17] LABS: ANION GAP 10 (8-16); BLOOD UREA NITROGEN 9 mg/dl (7-20); CALCIUM 6.4 mg/dl (8.4-10.2); CARBON DIOXIDE 30 mmol/L (21-31); CHLORIDE 99 mmol/L (97-110); CREATININE 0.94 mg/dl (0.61-1.24); GLUCOSE 110 mg/dl (70-220); MAGNESIUM 1.8 mg/dl (1.7-2.5); PHOSPHORUS 1.7 mg/dl (2.5-4.9); POTASSIUM 3.7 mmol/L (3.5-5.1); SODIUM 135 mmol/L (135-144)
[2017-09-21 06:44] LABS: LACTIC ACID 1.7 mmol/L (0.5-2.0)
[2017-09-21 06:45] LABS: CHOLESTEROL 120 mg/dl (100-200)
[2017-09-21 06:45] LABS: CHOL/HDL RATIO 6.6 RATIO; HDL CHOLESTEROL 18 mg/dl (30-78); LDL CHOLESTEROL,CALCULATED 65 mg/dl; TRIGLYCERIDES 186 mg/dl (0-149)
[2017-09-21 07:09] LABS: HEMOGLOBIN A1C 7.8 % (0-5.9)
[2017-09-21] MEDS: NPH, HUMAN INSULIN ISOPHANE 3ML VIAL SC ×2 (09:00→22:15)
[2017-09-21] MEDS: LISINOPRIL 20 MG TAB PO (09:00)
[2017-09-21] MEDS: HEPARIN 5,000 UNIT/0.5 ML VIAL SC ×2 (09:00→22:01)
[2017-09-21] MEDS: INSULIN REGULAR, HUMAN 100 UNIT/1 ML 3ML VIAL SC (09:00)
[2017-09-21] MEDS: LEVETIRACETAM 750 MG TAB PO ×2 (09:55→22:02)
[2017-09-21] MEDS ORDERED: VANCOMYCIN 1.5 GM in SOD CHLORIDE 0.9% 250 ML IVPB (11:00)
[2017-09-21] MEDS: VANCOMYCIN 750 MG in DEXTROSE 5% 150 ML IVPB (11:17)
[2017-09-21] MEDS: CIPROFLOXACIN 500 MG TAB PO ×2 (11:43→17:17)
[2017-09-21] MEDS ORDERED: SOD CHLORIDE 0.9% 1,000 ML IV (17:00)
[2017-09-21] MEDS: ONDANSETRON 4 MG INJ IV (20:09)
[2017-09-21] MEDS: METOCLOPRAMIDE 10 MG INJ IV (21:57)
[2017-09-21] MEDS: ATORVASTATIN 20 MG TAB PO (22:02)
[2017-09-22] MEDS: SUCRALFATE 1 GM TAB PO ×5 (00:17→18:00)
[2017-09-22] MEDS: ACCU-CHEK XX (02:00)
[2017-09-22] MEDS: CIPROFLOXACIN 500 MG TAB PO (06:11)
[2017-09-22 06:14] LABS: ADD MAN DIFF? NO
[2017-09-22 06:22] LABS: ABNORMAL IP MESSAGE 1; BASOPHILS % 0.2 % (0.0-2.0); EOSINOPHILS # 0.1 10^3/ul (0.0-0.5); EOSINOPHILS % 0.6 % (0.0-7.0); HEMATOCRIT 19.7 % (42.0-52.0); LYMPHOCYTES # 1.1 10^3/ul (0.8-2.9); LYMPHOCYTES % 8.6 % (15.0-51.0); MEAN CORPUSCULAR HEMOGLOBIN 26.5 pg (29.0-33.0); MEAN CORPUSCULAR VOLUME 80.4 fl (82.0-101.0); MEAN PLATELET VOLUME 9.4 fl (7.4-10.4); MONOCYTE # 1.3 10^3/ul (0.3-0.9); MONOCYTES % 10.9 % (0.0-11.0); NEUTROPHIL # 9.6 10^3/ul (1.6-7.5); NEUTROPHILS % 78.6 % (39.0-77.0); PLATELET COUNT 316 10^3/UL (140-415); POSITIVE DIFF @See below; RED BLOOD COUNT 2.45 10^6/ul (4.70-6.10); RED CELL DISTRIBUTION WIDTH 15.8 % (11.5-14.5)
[2017-09-22 06:22] LABS: WHITE BLOOD COUNT 12.2 10^3/ul (4.8-10.8)
[2017-09-22 06:48] LABS: ANION GAP 11 (8-16); BLOOD UREA NITROGEN 16 mg/dl (7-20); CALCIUM 6.2 mg/dl (8.4-10.2); CARBON DIOXIDE 26 mmol/L (21-31); CHLORIDE 98 mmol/L (97-110); CREATININE 2.34 mg/dl (0.61-1.24); GLUCOSE 209 mg/dl (70-220); HEMOGLOBIN 6.5 g/dl (14.0-18.0); PATH REVIEW? YES; POTASSIUM 3.2 mmol/L (3.5-5.1); SODIUM 132 mmol/L (135-144)
[2017-09-22 06:49] LABS: MAGNESIUM 1.7 mg/dl (1.7-2.5)
[2017-09-22 06:49] LABS: PHOSPHORUS 2.3 mg/dl (2.5-4.9)
[2017-09-22 07:29] LABS: ANISOCYTOSIS 1+ (0-0); BAND NEUTROPHILS #M 0.7 10^3/ul (0.0-0.6); BAND NEUTROPHILS % (M) 6 % (0-4); HYPOCHROMASIA 2+ (0-0); LYMPHOCYTES #M 0.6 10^3/ul (0.8-2.9); LYMPHOCYTES % (M) 5 % (15-51); MONOCYTE #M 1.4 10^3/ul (0.3-0.9); MONOCYTES % (M) 12 % (0-11); PLATELET ESTIMATE NORMAL; POLYCHROMASIA 3+ (0-0); SEG NEUT #M 9.5 10^3/ul (1.6-7.5); SEGMENTED NEUTROPHILS (M) % 77 % (39-77); SMUDGE%M 4 % (0-0)
[2017-09-22] MEDS ORDERED: INSULIN ASPART [NOVOLOG] 3 ML PEN SC (07:30)
[2017-09-22] MEDS: HEPARIN 5,000 UNIT/0.5 ML VIAL SC ×2 (08:39→20:14)
[2017-09-22] MEDS: INSULIN ASPART [NOVOLOG] 3 ML PEN SC ×3 (09:07→17:28)
[2017-09-22] MEDS: Insulin NOVOLOG SS MILD Algorithm (SS with meals and bedtime) SC ×5 (09:16→21:00)
[2017-09-22] MEDS: NPH, HUMAN INSULIN ISOPHANE 3ML VIAL SC ×2 (09:20→20:12)
[2017-09-22] MEDS: LEVETIRACETAM 750 MG TAB PO ×2 (09:22→20:16)
[2017-09-22] MEDS: SOD CHLORIDE 0.9% 1,000 ML IV (09:29)
[2017-09-22] MEDS: LISINOPRIL 20 MG TAB PO (10:51)
[2017-09-22 10:57] LABS: IMMEDIATE SPIN CROSSMATCH 1 3
[2017-09-22] MEDS: VANCOMYCIN 750 MG in DEXTROSE 5% 150 ML IVPB (14:29)
[2017-09-22] MEDS: METOCLOPRAMIDE 10 MG INJ IV (14:53)
[2017-09-22] MEDS: POTASSIUM CHLORIDE 100 ML IVPB (17:13)
[2017-09-22] MEDS: ONDANSETRON 4 MG INJ IV (17:13)
[2017-09-22] MEDS: ATORVASTATIN 20 MG TAB PO (20:16)
[2017-09-22] MEDS: LORAZEPAM 2 MG INJ IV (21:22)
[2017-09-22] MEDS: ACETAMINOPHEN 325 MG TAB PO (22:36)
[2017-09-23] MEDS: SUCRALFATE 1 GM TAB PO ×5 (00:10→23:40)
[2017-09-23] MEDS: ACCU-CHEK XX (02:00)
[2017-09-23 02:51] LABS: ADD UMIC YES; UR ASCORBIC ACID NEGATIVE (NEGATIVE); UR BILIRUBIN (Dip) NEGATIVE (NEGATIVE); UR BLOOD (Dip) NEGATIVE (NEGATIVE); UR CLARITY CLEAR (CLEAR); UR COLOR YELLOW (YELLOW); UR GLUCOSE (Dip) 1+ mg/dL (NEGATIVE); UR KETONES (Dip) NEGATIVE (NEGATIVE); UR LEUKOCYTE ESTERASE (Dip) NEGATIVE Leu/ul (NEGATIVE); UR MUCUS FEW /HPF (NONE SEEN); UR NITRITE (Dip) NEGATIVE (NEGATIVE); UR RBC 1 /HPF (0-5); UR SPECIFIC GRAVITY (Dip) 1.008 (1.003-1.030); UR TOTAL PROTEIN (Dip) 2+ mg/dl (NEGATIVE); UR UROBILINOGEN (Dip) NEGATIVE (NEGATIVE); UR WBC 2 /HPF (0-5)
[2017-09-23 03:58] LABS: POST-TRANSFUSION BILIRUBIN 0.8 mg/dl
[2017-09-23 03:58] LABS: PRETRANSFUSION BILIRUBIN 0.4 mg/dl
[2017-09-23] MEDS: SOD CHLORIDE 0.9% 1,000 ML IV (06:00)
[2017-09-23 06:23] LABS: ADD MAN DIFF? NO
[2017-09-23 06:26] LABS: WHITE BLOOD COUNT 15.4 10^3/ul (4.8-10.8)
[2017-09-23 06:26] LABS: BASOPHILS % 0.2 % (0.0-2.0); EOSINOPHILS # 0.1 10^3/ul (0.0-0.5); EOSINOPHILS % 0.3 % (0.0-7.0); HEMATOCRIT 24.3 % (42.0-52.0); HEMOGLOBIN 8.2 g/dl (14.0-18.0); LYMPHOCYTES # 1.1 10^3/ul (0.8-2.9); LYMPHOCYTES % 7.3 % (15.0-51.0); MEAN CORPUSCULAR HEMOGLOBIN 27.3 pg (29.0-33.0); MEAN CORPUSCULAR HGB CONC 33.7 g/dl (32.0-37.0); MEAN PLATELET VOLUME 9.5 fl (7.4-10.4); MONOCYTE # 1.4 10^3/ul (0.3-0.9); MONOCYTES % 9.2 % (0.0-11.0); NEUTROPHIL # 12.6 10^3/ul (1.6-7.5); NEUTROPHILS % 81.9 % (39.0-77.0); PLATELET COUNT 323 10^3/UL (140-415)
[2017-09-23] MEDS: CIPROFLOXACIN 500 MG TAB PO ×2 (06:28→17:22)
[2017-09-23 06:54] LABS: ANION GAP 9 (8-16); BLOOD UREA NITROGEN 18 mg/dl (7-20); CALCIUM 6.8 mg/dl (8.4-10.2); CARBON DIOXIDE 28 mmol/L (21-31); CHLORIDE 103 mmol/L (97-110); CREATININE 2.47 mg/dl (0.61-1.24); GLUCOSE 57 mg/dl (70-220); POTASSIUM 3.6 mmol/L (3.5-5.1); SODIUM 136 mmol/L (135-144)
[2017-09-23 06:57] LABS: PHOSPHORUS 2.4 mg/dl (2.5-4.9)
[2017-09-23] MEDS: INSULIN ASPART [NOVOLOG] 3 ML PEN SC ×3 (07:35→17:23)
[2017-09-23] MEDS: NPH, HUMAN INSULIN ISOPHANE 3ML VIAL SC ×2 (08:00→20:30)
[2017-09-23] MEDS: Insulin NOVOLOG SS MILD Algorithm (SS with meals and bedtime) SC ×4 (08:00→20:31)
[2017-09-23] MEDS: LEVETIRACETAM 750 MG TAB PO ×2 (09:07→20:29)
[2017-09-23] MEDS: LISINOPRIL 20 MG TAB PO (09:07)
[2017-09-23] MEDS: HEPARIN 5,000 UNIT/0.5 ML VIAL SC ×2 (09:08→20:31)
[2017-09-23] MEDS: ACETAMINOPHEN 325 MG TAB PO (10:41)
[2017-09-23] MEDS: DIPHENHYDRAMINE 25 MG CAP PO (10:42)
[2017-09-23] MEDS: ATORVASTATIN 20 MG TAB PO (20:28)
[2017-09-23] MEDS: ONDANSETRON 4 MG INJ IV (20:37)
[2017-09-23] MEDS: LORAZEPAM 2 MG INJ IV (21:34)
[2017-09-24] MEDS: ACCU-CHEK XX (01:47)
[2017-09-24 05:17] LABS: ADD MAN DIFF? NO
[2017-09-24] MEDS: CIPROFLOXACIN 500 MG TAB PO (05:21)
[2017-09-24] MEDS: SUCRALFATE 1 GM TAB PO (05:21)
[2017-09-24 05:30] LABS: ABNORMAL IP MESSAGE 1; BASOPHILS % 0.2 % (0.0-2.0); EOSINOPHILS # 0.1 10^3/ul (0.0-0.5); EOSINOPHILS % 0.4 % (0.0-7.0); HEMATOCRIT 27.7 % (42.0-52.0); HEMOGLOBIN 9.5 g/dl (14.0-18.0); LYMPHOCYTES # 1.3 10^3/ul (0.8-2.9); LYMPHOCYTES % 7.7 % (15.0-51.0); MEAN CORPUSCULAR HEMOGLOBIN 27.9 pg (29.0-33.0); MEAN CORPUSCULAR HGB CONC 34.3 g/dl (32.0-37.0); MEAN CORPUSCULAR VOLUME 81.2 fl (82.0-101.0); MEAN PLATELET VOLUME 9.5 fl (7.4-10.4); MONOCYTE # 1.8 10^3/ul (0.3-0.9); MONOCYTES % 10.3 % (0.0-11.0); NEUTROPHIL # 13.9 10^3/ul (1.6-7.5); NEUTROPHILS % 80.6 % (39.0-77.0); PLATELET COUNT 334 10^3/UL (140-415); POSITIVE DIFF @See below; RED BLOOD COUNT 3.41 10^6/ul (4.70-6.10)
[2017-09-24 05:30] LABS: WHITE BLOOD COUNT 17.3 10^3/ul (4.8-10.8)
[2017-09-24 06:14] LABS: PHOSPHORUS 2.6 mg/dl (2.5-4.9)
[2017-09-24 06:14] LABS: MAGNESIUM 1.9 mg/dl (1.7-2.5)
[2017-09-24 06:15] LABS: ANION GAP 13 (8-16); BLOOD UREA NITROGEN 19 mg/dl (7-20); CALCIUM 7.1 mg/dl (8.4-10.2); CARBON DIOXIDE 24 mmol/L (21-31); CHLORIDE 100 mmol/L (97-110); CREATININE 2.71 mg/dl (0.61-1.24); GLUCOSE 140 mg/dl (70-220); POTASSIUM 3.4 mmol/L (3.5-5.1); SODIUM 134 mmol/L (135-144)
[2017-09-24 06:19] LABS: CREATININE 2.55 mg/dl (0.61-1.24)
[2017-09-24] MEDS: INSULIN ASPART [NOVOLOG] 3 ML PEN SC ×3 (08:46→17:35)
[2017-09-24] MEDS: LEVETIRACETAM 750 MG TAB PO ×2 (09:16→20:26)
[2017-09-24] MEDS: Insulin NOVOLOG SS MILD Algorithm (SS with meals and bedtime) SC ×4 (09:17→20:27)
[2017-09-24] MEDS: HEPARIN 5,000 UNIT/0.5 ML VIAL SC ×2 (09:18→20:33)
[2017-09-24] MEDS: NPH, HUMAN INSULIN ISOPHANE 3ML VIAL SC ×2 (09:19→20:25)
[2017-09-24] MEDS: LISINOPRIL 20 MG TAB PO (10:31)
[2017-09-24] MEDS: ONDANSETRON 4 MG INJ IV ×3 (10:37→16:24)
[2017-09-24] MEDS: SUCRALFATE (100 MG/ML) 10ML CUP PO ×3 (12:22→18:38)
[2017-09-24] MEDS: METOCLOPRAMIDE 10 MG INJ IV ×2 (12:22→18:38)
[2017-09-24 20:06] LABS: COLLECTION PERIOD 24 hrs
[2017-09-24] MEDS: LORAZEPAM 2 MG INJ IV (20:17)
[2017-09-24] MEDS: ATORVASTATIN 20 MG TAB PO (20:26)
[2017-09-24 20:37] LABS: URINE POTASSIUM 16.4 mmol/l
[2017-09-24 20:46] LABS: URINE SODIUM < 13.0 mmol/l; VOLUME 325 mls
[2017-09-24 20:48] LABS: 24 HR POTASSIUM VOLUME 325 mls
[2017-09-24] MEDS: ONDANSETRON INJ 8 MG in DEXTROSE 5% 50 ML IV (21:32)
[2017-09-24] MEDS: ACETAMINOPHEN 325 MG TAB PO (22:34)
[2017-09-25] MEDS: SUCRALFATE (100 MG/ML) 10ML CUP PO ×4 (00:27→17:28)
[2017-09-25] MEDS: ACCU-CHEK XX (02:00)
[2017-09-25 05:35] LABS: ADD MAN DIFF? NO
[2017-09-25 05:44] LABS: WHITE BLOOD COUNT 17.7 10^3/ul (4.8-10.8)
[2017-09-25 05:44] LABS: ABNORMAL IP MESSAGE 1; BASOPHILS % 0.2 % (0.0-2.0); EOSINOPHILS # 0.1 10^3/ul (0.0-0.5); EOSINOPHILS % 0.3 % (0.0-7.0); HEMATOCRIT 27.7 % (42.0-52.0); HEMOGLOBIN 9.4 g/dl (14.0-18.0); LYMPHOCYTES # 1.2 10^3/ul (0.8-2.9); LYMPHOCYTES % 6.6 % (15.0-51.0); MEAN CORPUSCULAR HEMOGLOBIN 27.6 pg (29.0-33.0); MEAN CORPUSCULAR HGB CONC 33.9 g/dl (32.0-37.0); MEAN CORPUSCULAR VOLUME 81.2 fl (82.0-101.0); MEAN PLATELET VOLUME 9.4 fl (7.4-10.4); MONOCYTES % 11.1 % (0.0-11.0); NEUTROPHIL # 14.3 10^3/ul (1.6-7.5); NEUTROPHILS % 81.1 % (39.0-77.0); PLATELET COUNT 314 10^3/UL (140-415); POSITIVE DIFF @See below; RED BLOOD COUNT 3.41 10^6/ul (4.70-6.10); RED CELL DISTRIBUTION WIDTH 16.5 % (11.5-14.5)
[2017-09-25 06:01] LABS: ANION GAP 12 (8-16); BLOOD UREA NITROGEN 23 mg/dl (7-20); CALCIUM 7.1 mg/dl (8.4-10.2); CARBON DIOXIDE 24 mmol/L (21-31); CHLORIDE 100 mmol/L (97-110); CREATININE 2.94 mg/dl (0.61-1.24); GLUCOSE 116 mg/dl (70-220); POTASSIUM 3.3 mmol/L (3.5-5.1); SODIUM 133 mmol/L (135-144)
[2017-09-25 06:13] LABS: MAGNESIUM 1.9 mg/dl (1.7-2.5)
[2017-09-25 06:13] LABS: PHOSPHORUS 2.7 mg/dl (2.5-4.9)
[2017-09-25] MEDS: Insulin NOVOLOG SS MILD Algorithm (SS with meals and bedtime) SC ×4 (08:00→20:53)
[2017-09-25] MEDS: NPH, HUMAN INSULIN ISOPHANE 3ML VIAL SC ×2 (08:07→20:44)
[2017-09-25] MEDS: INSULIN ASPART [NOVOLOG] 3 ML PEN SC ×3 (08:08→17:27)
[2017-09-25] MEDS: HEPARIN 5,000 UNIT/0.5 ML VIAL SC ×2 (08:19→20:47)
[2017-09-25] MEDS: LEVETIRACETAM 750 MG TAB PO ×2 (08:21→20:45)
[2017-09-25] MEDS: CIPROFLOXACIN 500 MG TAB PO (08:21)
[2017-09-25] MEDS: LISINOPRIL 20 MG TAB PO (08:23)
[2017-09-25] MEDS: L ACIDOPHIL/B LACTIS/B LONGUM CAPSULE PO ×3 (09:18→17:28)
[2017-09-25] MEDS: METOCLOPRAMIDE 10 MG INJ IV ×2 (12:32→19:35)
[2017-09-25 12:39] LABS: COLLECTION PERIOD 24 hrs; CREATININE CLEARANCE 7.4 mls/min (84.0-162.0); CREATININE,URINE RANDOM 83.85 mg/dl (20-370); SCRET 2.55 mg/dl (0.61-1.24); VOLUME 325 ml/24hrs
[2017-09-25] MEDS: metroNIDAZOLE 500 MG TAB PO ×2 (14:43→21:47)
[2017-09-25] MEDS: ONDANSETRON INJ 8 MG in DEXTROSE 5% 50 ML IV (16:07)
[2017-09-25] MEDS: POTASSIUM CHLORIDE 100 ML IVPB (17:27)
[2017-09-25] MEDS: ATORVASTATIN 20 MG TAB PO (20:47)
[2017-09-25] MEDS: LORAZEPAM 2 MG INJ IV (20:57)
[2017-09-26] MEDS: SUCRALFATE (100 MG/ML) 10ML CUP PO ×4 (00:15→17:48)
[2017-09-26] MEDS: metroNIDAZOLE 500 MG TAB PO ×3 (05:22→22:53)
[2017-09-26 06:10] LABS: ADD MAN DIFF? NO
[2017-09-26 06:19] LABS: WHITE BLOOD COUNT 19.2 10^3/ul (4.8-10.8)
[2017-09-26 06:19] LABS: ABNORMAL IP MESSAGE 1; BASOPHILS % 0.2 % (0.0-2.0); EOSINOPHILS % 0.2 % (0.0-7.0); HEMATOCRIT 29.5 % (42.0-52.0); HEMOGLOBIN 9.9 g/dl (14.0-18.0); LYMPHOCYTES # 1.5 10^3/ul (0.8-2.9); LYMPHOCYTES % 7.9 % (15.0-51.0); MEAN CORPUSCULAR HEMOGLOBIN 27.7 pg (29.0-33.0); MEAN CORPUSCULAR HGB CONC 33.6 g/dl (32.0-37.0); MEAN CORPUSCULAR VOLUME 82.4 fl (82.0-101.0); MEAN PLATELET VOLUME 9.7 fl (7.4-10.4); MONOCYTE # 2.6 10^3/ul (0.3-0.9); MONOCYTES % 13.6 % (0.0-11.0); NEUTROPHIL # 14.8 10^3/ul (1.6-7.5); NEUTROPHILS % 77.1 % (39.0-77.0); PLATELET COUNT 324 10^3/UL (140-415); POSITIVE DIFF @See below; RED BLOOD COUNT 3.58 10^6/ul (4.70-6.10); RED CELL DISTRIBUTION WIDTH 16.9 % (11.5-14.5)
[2017-09-26] MEDS: HYDROCODONE/APAP (5/325) TAB PO (06:25)
[2017-09-26 06:31] LABS: ANION GAP 12 (8-16); BLOOD UREA NITROGEN 28 mg/dl (7-20); CALCIUM 7.5 mg/dl (8.4-10.2); CARBON DIOXIDE 26 mmol/L (21-31); CHLORIDE 100 mmol/L (97-110); CREATININE 3.63 mg/dl (0.61-1.24); GLUCOSE 142 mg/dl (70-220); POTASSIUM 3.4 mmol/L (3.5-5.1); SODIUM 135 mmol/L (135-144)
[2017-09-26] MEDS: morphine 2 MG INJ IV ×2 (07:06→11:44)
[2017-09-26] MEDS: CIPROFLOXACIN 500 MG TAB PO (09:12)
[2017-09-26] MEDS: L ACIDOPHIL/B LACTIS/B LONGUM CAPSULE PO ×3 (09:12→17:48)
[2017-09-26] MEDS: LEVETIRACETAM 750 MG TAB PO ×2 (09:13→20:48)
[2017-09-26] MEDS: LISINOPRIL 20 MG TAB PO (09:14)
[2017-09-26] MEDS: INSULIN ASPART [NOVOLOG] 3 ML PEN SC ×3 (09:20→17:42)
[2017-09-26] MEDS: Insulin NOVOLOG SS MILD Algorithm (SS with meals and bedtime) SC ×4 (09:21→21:00)
[2017-09-26] MEDS: NPH, HUMAN INSULIN ISOPHANE 3ML VIAL SC ×2 (09:22→20:43)
[2017-09-26] MEDS: HEPARIN 5,000 UNIT/0.5 ML VIAL SC ×2 (09:23→20:45)
[2017-09-26] MEDS: D5W-0.45 NACL + KCL 20 MEQ 1,000 ML IV (09:29)
[2017-09-26] MEDS: METOCLOPRAMIDE 10 MG INJ IV ×2 (12:02→18:51)
[2017-09-26] MEDS: ATORVASTATIN 20 MG TAB PO (20:49)
[2017-09-26] MEDS: LORAZEPAM 2 MG INJ IV (22:55)
[2017-09-27] MEDS: SUCRALFATE (100 MG/ML) 10ML CUP PO ×5 (00:46→23:54)
[2017-09-27] MEDS: METOCLOPRAMIDE 10 MG INJ IV ×5 (00:46→23:54)
[2017-09-27] MEDS: ACETAMINOPHEN 325 MG TAB PO ×2 (01:13→08:42)
[2017-09-27] MEDS: D5W-0.45 NACL + KCL 20 MEQ 1,000 ML IV ×2 (05:00→08:34)
[2017-09-27] MEDS: metroNIDAZOLE 500 MG TAB PO (06:04)
[2017-09-27 06:19] LABS: ADD MAN DIFF? NO
[2017-09-27 06:24] LABS: WHITE BLOOD COUNT 20.9 10^3/ul (4.8-10.8)
[2017-09-27 06:24] LABS: ABNORMAL IP MESSAGE 1; BASOPHILS % 0.1 % (0.0-2.0); HEMATOCRIT 27.5 % (42.0-52.0); HEMOGLOBIN 9.2 g/dl (14.0-18.0); LYMPHOCYTES % 4.5 % (15.0-51.0); MEAN CORPUSCULAR HEMOGLOBIN 27.2 pg (29.0-33.0); MEAN CORPUSCULAR HGB CONC 33.5 g/dl (32.0-37.0); MEAN CORPUSCULAR VOLUME 81.4 fl (82.0-101.0); MEAN PLATELET VOLUME 10.1 fl (7.4-10.4); MONOCYTE # 2.3 10^3/ul (0.3-0.9); MONOCYTES % 11.1 % (0.0-11.0); NEUTROPHIL # 17.3 10^3/ul (1.6-7.5); PLATELET COUNT 311 10^3/UL (140-415); POSITIVE DIFF @See below; RED BLOOD COUNT 3.38 10^6/ul (4.70-6.10); RED CELL DISTRIBUTION WIDTH 17.4 % (11.5-14.5)
[2017-09-27 06:45] LABS: ANION GAP 16 (8-16); BLOOD UREA NITROGEN 34 mg/dl (7-20); CALCIUM 6.6 mg/dl (8.4-10.2); CARBON DIOXIDE 18 mmol/L (21-31); CHLORIDE 101 mmol/L (97-110); CREATININE 4.28 mg/dl (0.61-1.24); GLUCOSE 132 mg/dl (70-220); POTASSIUM 3.7 mmol/L (3.5-5.1); SODIUM 131 mmol/L (135-144)
[2017-09-27] MEDS: HYDROCODONE/APAP (5/325) TAB PO ×2 (06:45→21:01)
[2017-09-27] MEDS: SOD CHLORIDE 0.9% 500 ML IV (06:45)
[2017-09-27 06:47] LABS: ALANINE AMINOTRANSFERASE 242 IU/L (13-69); ALBUMIN 2.2 g/dl (3.3-4.9); ALBUMIN/GLOBULIN RATIO 0.61; ALKALINE PHOSPHATASE 1456 IU/L (42-121); ANION GAP 13 (8-16); BILIRUBIN,INDIRECT 0.4 mg/dl (0-1.1); BILIRUBIN,TOTAL 1.1 mg/dl (0.2-1.3); BLOOD UREA NITROGEN 33 mg/dl (7-20); CALCIUM 7.1 mg/dl (8.4-10.2); CARBON DIOXIDE 21 mmol/L (21-31); CHLORIDE 100 mmol/L (97-110); CREATININE 4.52 mg/dl (0.61-1.24); GLUCOSE 141 mg/dl (70-220); LIPASE 33 U/L (23-300); POTASSIUM 3.4 mmol/L (3.5-5.1); SODIUM 131 mmol/L (135-144); TOTAL PROTEIN 5.8 g/dl (6.1-8.1)
[2017-09-27 06:57] LABS: ASPARTATE AMINO TRANSFERASE 1178 IU/L (15-46)
[2017-09-27 07:58] LABS: LACTIC ACID 1.4 mmol/L (0.5-2.0)
[2017-09-27] MEDS: NPH, HUMAN INSULIN ISOPHANE 3ML VIAL SC (08:00)
[2017-09-27] MEDS: INSULIN ASPART [NOVOLOG] 3 ML PEN SC ×3 (08:15→18:10)
[2017-09-27] MEDS: Insulin NOVOLOG SS MILD Algorithm (SS with meals and bedtime) SC ×4 (08:22→21:00)
[2017-09-27] MEDS: L ACIDOPHIL/B LACTIS/B LONGUM CAPSULE PO ×3 (08:42→18:02)
[2017-09-27] MEDS: LEVETIRACETAM 750 MG TAB PO ×2 (08:42→21:02)
[2017-09-27] MEDS: VANCOMYCIN 1 GM (PMX) 250 ML IVPB (08:47)
[2017-09-27] MEDS: LISINOPRIL 20 MG TAB PO (08:50)
[2017-09-27] MEDS ORDERED: NS + KCL 20 MEQ 1,000 ML IV (11:00)
[2017-09-27] MEDS: SOD CHLORIDE 0.9% 250 ML IV (11:20)
[2017-09-27] MEDS: traMADol 50 MG TAB PO (11:24)
[2017-09-27] MEDS: HEPARIN 5,000 UNIT/0.5 ML VIAL SC ×2 (11:31→21:05)
[2017-09-27] MEDS ORDERED: VITAMIN A & D 5 GM OINT PACKET TOP (15:38)
[2017-09-27] MEDS ORDERED: VANCOMYCIN IV PER PHARMACY XX (16:30)
[2017-09-27] MEDS: NS + KCL 20 MEQ 1,000 ML IV (16:38)
[2017-09-27] MEDS: PIPER-TAZO 2.25 GM (PMX) 50 ML IVPB ×2 (16:39→22:15)
[2017-09-27] MEDS ORDERED: VANCOMYCIN 1.5 GM in SOD CHLORIDE 0.9% 250 ML IVPB (18:30)
[2017-09-27] MEDS: ATORVASTATIN 20 MG TAB PO (21:02)
[2017-09-27] MEDS: VANCOMYCIN 500MG/NS (PMX) 100 ML IVPB (21:03)
[2017-09-27] MEDS: LORAZEPAM 2 MG INJ IV (21:13)
[2017-09-28] MEDS: NS + KCL 20 MEQ 1,000 ML IV ×3 (01:30→11:30)
[2017-09-28] MEDS: HYDROCODONE/APAP (5/325) TAB PO (04:00)
[2017-09-28] MEDS: METOCLOPRAMIDE 10 MG INJ IV ×4 (05:36→23:46)
[2017-09-28] MEDS: PIPER-TAZO 2.25 GM (PMX) 50 ML IVPB ×3 (05:36→23:46)
[2017-09-28] MEDS: morphine LIQ (10 MG/5 ML) CUP PO ×2 (05:45→10:31)
[2017-09-28] MEDS: SUCRALFATE (100 MG/ML) 10ML CUP PO ×4 (05:45→23:46)
[2017-09-28 05:55] LABS: ADD MAN DIFF? NO
[2017-09-28 05:57] LABS: WHITE BLOOD COUNT 17.5 10^3/ul (4.8-10.8)
[2017-09-28 05:57] LABS: ABNORMAL IP MESSAGE 1; BASOPHILS % 0.2 % (0.0-2.0); EOSINOPHILS # 0.1 10^3/ul (0.0-0.5); EOSINOPHILS % 0.3 % (0.0-7.0); HEMATOCRIT 28.4 % (42.0-52.0); HEMOGLOBIN 9.4 g/dl (14.0-18.0); LYMPHOCYTES # 0.9 10^3/ul (0.8-2.9); LYMPHOCYTES % 5.3 % (15.0-51.0); MEAN CORPUSCULAR HEMOGLOBIN 27.6 pg (29.0-33.0); MEAN CORPUSCULAR HGB CONC 33.1 g/dl (32.0-37.0); MEAN CORPUSCULAR VOLUME 83.3 fl (82.0-101.0); MEAN PLATELET VOLUME 9.3 fl (7.4-10.4); MONOCYTES % 11.2 % (0.0-11.0); NEUTROPHIL # 14.3 10^3/ul (1.6-7.5); NEUTROPHILS % 81.7 % (39.0-77.0); PLATELET COUNT 292 10^3/UL (140-415); POSITIVE DIFF @See below; RED BLOOD COUNT 3.41 10^6/ul (4.70-6.10); RED CELL DISTRIBUTION WIDTH 17.9 % (11.5-14.5)
[2017-09-28 06:39] LABS: ALANINE AMINOTRANSFERASE 162 IU/L (13-69); ALBUMIN 2.1 g/dl (3.3-4.9); ALBUMIN/GLOBULIN RATIO 0.61; ALKALINE PHOSPHATASE 1183 IU/L (42-121); ANION GAP 16 (8-16); ASPARTATE AMINO TRANSFERASE 547 IU/L (15-46); BILIRUBIN,INDIRECT 0.4 mg/dl (0-1.1); BILIRUBIN,TOTAL 1.6 mg/dl (0.2-1.3); BLOOD UREA NITROGEN 37 mg/dl (7-20); CARBON DIOXIDE 17 mmol/L (21-31); CHLORIDE 104 mmol/L (97-110); CREATININE 5.01 mg/dl (0.61-1.24); GLUCOSE 139 mg/dl (70-220); POTASSIUM 3.9 mmol/L (3.5-5.1); SODIUM 133 mmol/L (135-144); TOTAL PROTEIN 5.5 g/dl (6.1-8.1)
[2017-09-28] MEDS: INSULIN ASPART [NOVOLOG] 3 ML PEN SC ×3 (08:15→17:49)
[2017-09-28] MEDS: Insulin NOVOLOG SS MILD Algorithm (SS with meals and bedtime) SC ×4 (08:15→21:00)
[2017-09-28 08:21] LABS: ADD UMIC YES; UR ASCORBIC ACID NEGATIVE (NEGATIVE); UR BACTERIA FEW /HPF (NONE SEEN); UR BILIRUBIN (Dip) 1+ mg/dL (NEGATIVE); UR BLOOD (Dip) 1+ mg/dL (NEGATIVE); UR CLARITY CLOUDY (CLEAR); UR COLOR AMBER (YELLOW); UR GLUCOSE (Dip) 1+ mg/dL (NEGATIVE); UR KETONES (Dip) NEGATIVE (NEGATIVE); UR LEUKOCYTE ESTERASE (Dip) NEGATIVE Leu/ul (NEGATIVE); UR NITRITE (Dip) NEGATIVE (NEGATIVE); UR RBC 2 /HPF (0-5); UR SPECIFIC GRAVITY (Dip) 1.021 (1.003-1.030); UR TOTAL PROTEIN (Dip) 2+ mg/dl (NEGATIVE); UR UROBILINOGEN (Dip) NEGATIVE (NEGATIVE); UR WBC 5 /HPF (0-5)
[2017-09-28] MEDS: LEVETIRACETAM 750 MG TAB PO ×2 (08:50→21:02)
[2017-09-28] MEDS: L ACIDOPHIL/B LACTIS/B LONGUM CAPSULE PO ×3 (08:50→17:41)
[2017-09-28] MEDS: HEPARIN 5,000 UNIT/0.5 ML VIAL SC ×2 (08:51→21:03)
[2017-09-28] MEDS: LISINOPRIL 20 MG TAB PO (08:53)
[2017-09-28] MEDS ORDERED: HEPARIN 1000 UNITS/ML 10 ML INJ HE (15:30)
[2017-09-28] MEDS ORDERED: ALBUMIN HUMAN 25% 50 ML IV (15:30)
[2017-09-28] MEDS ORDERED: SODIUM CHLORIDE 0.9% 1L BAG IV (15:30)
[2017-09-28] MEDS: SOD CHLORIDE 0.9% 1,000 ML IV (16:00)
[2017-09-28] MEDS: ATORVASTATIN 20 MG TAB PO (21:02)
[2017-09-28] MEDS: SOD CHLORIDE 0.9% 250 ML IV (22:04)
[2017-09-29] MEDS: SOD CHLORIDE 0.9% 1,000 ML IV ×5 (01:00→23:39)
[2017-09-29] MEDS: PIPER-TAZO 2.25 GM (PMX) 50 ML IVPB ×3 (05:25→23:23)
[2017-09-29] MEDS: METOCLOPRAMIDE 10 MG INJ IV ×3 (05:25→17:41)
[2017-09-29] MEDS: SUCRALFATE (100 MG/ML) 10ML CUP PO ×3 (05:30→17:41)
[2017-09-29 06:00] LABS: WHITE BLOOD COUNT 26.1 10^3/ul (4.8-10.8)
[2017-09-29 06:00] LABS: ABNORMAL IP MESSAGE 1; HEMATOCRIT 27.8 % (42.0-52.0); HEMOGLOBIN 9.1 g/dl (14.0-18.0); MEAN CORPUSCULAR HEMOGLOBIN 27.4 pg (29.0-33.0); MEAN CORPUSCULAR HGB CONC 32.7 g/dl (32.0-37.0); MEAN CORPUSCULAR VOLUME 83.7 fl (82.0-101.0); MEAN PLATELET VOLUME 9.8 fl (7.4-10.4); PLATELET COUNT 378 10^3/UL (140-415); POSITIVE DIFF @See below; RED BLOOD COUNT 3.32 10^6/ul (4.70-6.10); RED CELL DISTRIBUTION WIDTH 18.9 % (11.5-14.5)
[2017-09-29 06:11] LABS: ADD MAN DIFF? YES
[2017-09-29 06:16] LABS: ALANINE AMINOTRANSFERASE 130 IU/L (13-69); ALBUMIN 2.1 g/dl (3.3-4.9); ALBUMIN/GLOBULIN RATIO 0.58; ALKALINE PHOSPHATASE 1153 IU/L (42-121); ANION GAP 17 (8-16); ASPARTATE AMINO TRANSFERASE 360 IU/L (15-46); BILIRUBIN,INDIRECT 0.4 mg/dl (0-1.1); BILIRUBIN,TOTAL 1.7 mg/dl (0.2-1.3); BLOOD UREA NITROGEN 40 mg/dl (7-20); CALCIUM 7.4 mg/dl (8.4-10.2); CARBON DIOXIDE 15 mmol/L (21-31); CHLORIDE 107 mmol/L (97-110); CREATININE 5.85 mg/dl (0.61-1.24); GLUCOSE 144 mg/dl (70-220); MAGNESIUM 1.8 mg/dl (1.7-2.5); POTASSIUM 4.3 mmol/L (3.5-5.1); SODIUM 135 mmol/L (135-144); TOTAL PROTEIN 5.7 g/dl (6.1-8.1)
[2017-09-29 06:24] LABS: VANCOMYCIN,RANDOM 17.5 ug/ml
[2017-09-29 07:49] LABS: ANISOCYTOSIS 1+ (0-0); BAND NEUTROPHILS #M 1.3 10^3/ul (0.0-0.6); BAND NEUTROPHILS % (M) 5 % (0-4); BURR CELLS 1+ (0-0); EOSINOPHILS % (M) 2 % (0-7); LYMPHOCYTES % (M) 8 % (15-51); MICROCYTOSIS 1+ (0-0); MONOCYTE #M 1.8 10^3/ul (0.3-0.9); MONOCYTES % (M) 7 % (0-11); PLATELET ESTIMATE NORMAL; POIKILOCYTOSIS 2+ (0-0); POLYCHROMASIA 3+ (0-0); SEG NEUT #M 20.7 10^3/ul (1.6-7.5); SEGMENTED NEUTROPHILS (M) % 78 % (39-77); SMUDGE%M 1 % (0-0)
[2017-09-29] MEDS: INSULIN ASPART [NOVOLOG] 3 ML PEN SC ×3 (08:15→17:49)
[2017-09-29] MEDS: Insulin NOVOLOG SS MILD Algorithm (SS with meals and bedtime) SC ×4 (08:15→22:10)
[2017-09-29] MEDS: LISINOPRIL 20 MG TAB PO (09:00)
[2017-09-29] MEDS: L ACIDOPHIL/B LACTIS/B LONGUM CAPSULE PO ×3 (10:18→17:41)
[2017-09-29] MEDS: LEVETIRACETAM 750 MG TAB PO (10:19)
[2017-09-29] MEDS: ZYVOX 600 MG TAB PO (10:19)
[2017-09-29] MEDS: HEPARIN 5,000 UNIT/0.5 ML VIAL SC ×2 (10:24→23:39)
[2017-09-29] MEDS: ALBUMIN HUMAN 25% 50 ML IV (12:26)
[2017-09-29] MEDS: morphine LIQ (10 MG/5 ML) CUP PO (15:24)
[2017-09-29] MEDS ORDERED: VANCOMYCIN 750 MG in DEXTROSE 5% 150 ML IVPB (17:00)
[2017-09-29] MEDS: ATORVASTATIN 20 MG TAB PO (22:15)
[2017-09-29] MEDS: HEPARIN 1000 UNITS/ML 10 ML INJ CATHETER (23:17)
[2017-09-30] MEDS: LINEZOLID 600 MG/D5W (PMX) 300 ML IVPB ×4 (00:15→20:26)
[2017-09-30] MEDS: LEVETIRACETAM IV 750 MG in DEXTROSE 5% 100 ML IVPB ×4 (00:15→21:51)
[2017-09-30] MEDS: METOCLOPRAMIDE 10 MG INJ IV ×4 (00:21→18:09)
[2017-09-30] MEDS: INSULIN ASPART [NOVOLOG] 3 ML PEN SC ×6 (00:31→20:26)
[2017-09-30] MEDS: SOD CHLORIDE 0.9% 250 ML IV (01:58)
[2017-09-30] MEDS: LORAZEPAM 2 MG INJ IV (05:03)
[2017-09-30] MEDS: PIPER-TAZO 2.25 GM (PMX) 50 ML IVPB ×3 (05:31→22:41)
[2017-09-30] MEDS: SUCRALFATE (100 MG/ML) 10ML CUP PO ×4 (05:38→18:09)
[2017-09-30 06:12] LABS: WHITE BLOOD COUNT 27.4 10^3/ul (4.8-10.8)
[2017-09-30 06:12] LABS: ABNORMAL IP MESSAGE 1; HEMATOCRIT 23.3 % (42.0-52.0); HEMOGLOBIN 7.8 g/dl (14.0-18.0); MEAN CORPUSCULAR HEMOGLOBIN 27.3 pg (29.0-33.0); MEAN CORPUSCULAR HGB CONC 33.5 g/dl (32.0-37.0); MEAN CORPUSCULAR VOLUME 81.5 fl (82.0-101.0); MEAN PLATELET VOLUME 9.1 fl (7.4-10.4); PLATELET COUNT 346 10^3/UL (140-415); POSITIVE DIFF @See below; RED BLOOD COUNT 2.86 10^6/ul (4.70-6.10); RED CELL DISTRIBUTION WIDTH 18.7 % (11.5-14.5)
[2017-09-30 06:24] LABS: ADD MAN DIFF? YES
[2017-09-30 06:31] LABS: ALANINE AMINOTRANSFERASE 105 IU/L (13-69); ALBUMIN/GLOBULIN RATIO 0.58; ALKALINE PHOSPHATASE 1148 IU/L (42-121); ANION GAP 14 (8-16); ASPARTATE AMINO TRANSFERASE 308 IU/L (15-46); BILIRUBIN,INDIRECT 0.4 mg/dl (0-1.1); BILIRUBIN,TOTAL 1.6 mg/dl (0.2-1.3); BLOOD UREA NITROGEN 24 mg/dl (7-20); CALCIUM 7.1 mg/dl (8.4-10.2); CARBON DIOXIDE 22 mmol/L (21-31); CHLORIDE 103 mmol/L (97-110); CREATININE 3.89 mg/dl (0.61-1.24); GLUCOSE 149 mg/dl (70-220); MAGNESIUM 1.7 mg/dl (1.7-2.5); POTASSIUM 3.6 mmol/L (3.5-5.1); SODIUM 135 mmol/L (135-144); TOTAL PROTEIN 5.4 g/dl (6.1-8.1)
[2017-09-30 07:11] LABS: ANISOCYTOSIS 1+ (0-0); BAND NEUTROPHILS #M 1.3 10^3/ul (0.0-0.6); BAND NEUTROPHILS % (M) 5 % (0-4); EOSINOPHILS % (M) 1 % (0-7); HYPOCHROMASIA 1+ (0-0); LYMPHOCYTES #M 1.6 10^3/ul (0.8-2.9); LYMPHOCYTES % (M) 6 % (15-51); MONOCYTES % (M) 11 % (0-11); MYELOCYTES #M 0.2 10^3/ul (0.0-0.0); MYELOCYTES % (M) 1 % (0-0); PLATELET ESTIMATE NORMAL; POLYCHROMASIA 3+ (0-0); SEG NEUT #M 21.2 10^3/ul (1.6-7.5); SEGMENTED NEUTROPHILS (M) % 76 % (39-77); SMUDGE%M 8 % (0-0)
[2017-09-30] MEDS: L ACIDOPHIL/B LACTIS/B LONGUM CAPSULE PO ×3 (08:15→18:09)
[2017-09-30] MEDS: HEPARIN 5,000 UNIT/0.5 ML VIAL SC ×2 (08:24→20:33)
[2017-09-30] MEDS: SOD CHLORIDE 0.9% 1,000 ML IV (15:23)
[2017-09-30] MEDS: LACTULOSE ENEMA 1,000 ML BTL PR ×2 (15:30→22:00)
[2017-09-30] MEDS: ATORVASTATIN 20 MG TAB PO (20:27)
[2017-10-01] MEDS: INSULIN ASPART [NOVOLOG] 3 ML PEN SC ×6 (01:00→20:45)
[2017-10-01] MEDS: LORAZEPAM 2 MG INJ IV (01:01)
[2017-10-01] MEDS: METOCLOPRAMIDE 10 MG INJ IV ×5 (01:06→23:39)
[2017-10-01] MEDS: SOD CHLORIDE 0.9% 1,000 ML IV ×2 (04:15→16:01)
[2017-10-01] MEDS: SUCRALFATE (100 MG/ML) 10ML CUP PO ×5 (05:44→23:39)
[2017-10-01] MEDS: LACTULOSE ENEMA 1,000 ML BTL PR ×4 (05:45→23:38)
[2017-10-01] MEDS: PIPER-TAZO 2.25 GM (PMX) 50 ML IVPB ×3 (05:45→22:14)
[2017-10-01 06:04] LABS: ADD MAN DIFF? NO
[2017-10-01 06:08] LABS: ABNORMAL IP MESSAGE 1; BASOPHIL # 0.1 10^3/ul (0.0-0.1); BASOPHILS % 0.2 % (0.0-2.0); EOSINOPHILS # 0.3 10^3/ul (0.0-0.5); EOSINOPHILS % 1.1 % (0.0-7.0); HEMATOCRIT 23.7 % (42.0-52.0); HEMOGLOBIN 7.7 g/dl (14.0-18.0); LYMPHOCYTES # 1.7 10^3/ul (0.8-2.9); LYMPHOCYTES % 6.8 % (15.0-51.0); MEAN CORPUSCULAR HEMOGLOBIN 26.8 pg (29.0-33.0); MEAN CORPUSCULAR HGB CONC 32.5 g/dl (32.0-37.0); MEAN CORPUSCULAR VOLUME 82.6 fl (82.0-101.0); MEAN PLATELET VOLUME 9.5 fl (7.4-10.4); MONOCYTE # 1.8 10^3/ul (0.3-0.9); MONOCYTES % 7.4 % (0.0-11.0); NEUTROPHIL # 20.2 10^3/ul (1.6-7.5); NEUTROPHILS % 81.2 % (39.0-77.0); NUCLEATED RED BLOOD CELLS% 0.1 /100WBC (0.0-0.0); PLATELET COUNT 307 10^3/UL (140-415); POSITIVE DIFF @See below; RED BLOOD COUNT 2.87 10^6/ul (4.70-6.10); RED CELL DISTRIBUTION WIDTH 19.2 % (11.5-14.5)
[2017-10-01 06:08] LABS: WHITE BLOOD COUNT 24.9 10^3/ul (4.8-10.8)
[2017-10-01 06:41] LABS: ALANINE AMINOTRANSFERASE 87 IU/L (13-69); ALBUMIN 1.9 g/dl (3.3-4.9); ALBUMIN/GLOBULIN RATIO 0.59; ALKALINE PHOSPHATASE 1303 IU/L (42-121); ANION GAP 13 (8-16); ASPARTATE AMINO TRANSFERASE 243 IU/L (15-46); BILIRUBIN,INDIRECT 0.3 mg/dl (0-1.1); BILIRUBIN,TOTAL 1.4 mg/dl (0.2-1.3); BLOOD UREA NITROGEN 31 mg/dl (7-20); CALCIUM 7.2 mg/dl (8.4-10.2); CARBON DIOXIDE 21 mmol/L (21-31); CHLORIDE 104 mmol/L (97-110); CREATININE 4.91 mg/dl (0.61-1.24); GLUCOSE 159 mg/dl (70-220); MAGNESIUM 1.8 mg/dl (1.7-2.5); POTASSIUM 3.9 mmol/L (3.5-5.1); SODIUM 134 mmol/L (135-144); TOTAL PROTEIN 5.1 g/dl (6.1-8.1)
[2017-10-01] MEDS: LINEZOLID 600 MG/D5W (PMX) 300 ML IVPB ×2 (08:30→20:51)
[2017-10-01] MEDS: L ACIDOPHIL/B LACTIS/B LONGUM CAPSULE PO ×3 (08:30→18:00)
[2017-10-01] MEDS: HEPARIN 5,000 UNIT/0.5 ML VIAL SC ×2 (08:32→20:46)
[2017-10-01 09:49] LABS: ANISOCYTOSIS 1+ (0-0); BASOPHIL #M 0.2 10^3/ul (0.0-0.0); BASOPHILS % (M) 1 % (0-2); HYPOCHROMASIA 1+ (0-0); LYMPHOCYTES #M 0.4 10^3/ul (0.8-2.9); LYMPHOCYTES % (M) 2 % (15-51); METAMYELOCYTES #M 0.2 10^3/ul (0.0-0.0); METAMYELOCYTES %M 1 % (0-0); MONOCYTE #M 1.4 10^3/ul (0.3-0.9); MONOCYTES % (M) 6 % (0-11); PLASMA CELLS #M 0.2 10^3/ul (0.0-0.0); PLASMAC%(M) 1 % (0); PLATELET ESTIMATE NORMAL; POLYCHROMASIA 2+ (0-0); REACTIVE LYMPHOCYTES #M 0.4 10^3/ul (0.0-0.0); REACTIVE LYMPHOCYTES% (M) 2 % (0-0); SEGMENTED NEUTROPHILS (M) % 87 % (39-77)
[2017-10-01] MEDS: LEVETIRACETAM IV 750 MG in DEXTROSE 5% 100 ML IVPB ×2 (11:57→20:24)
[2017-10-01] MEDS ORDERED: VITAMIN A & D 5 GM OINT PACKET TOP (18:29)
[2017-10-01 19:05] LABS: AMMONIA 10 umol/l (9-30)
[2017-10-01] MEDS: ATORVASTATIN 20 MG TAB PO (20:46)
[2017-10-01] MEDS: morphine LIQ (10 MG/5 ML) CUP PO (20:50)
[2017-10-01 22:56] LABS: TROPONIN-I < 0.012 ng/ml (0.000-0.120)
[2017-10-02] MEDS: LORAZEPAM 2 MG INJ IV (00:29)
[2017-10-02] MEDS: INSULIN ASPART [NOVOLOG] 3 ML PEN SC ×6 (00:31→20:56)
[2017-10-02] MEDS: PIPER-TAZO 2.25 GM (PMX) 50 ML IVPB ×3 (05:40→22:34)
[2017-10-02] MEDS: METOCLOPRAMIDE 10 MG INJ IV ×3 (05:40→18:16)
[2017-10-02] MEDS: LACTULOSE ENEMA 1,000 ML BTL PR (05:46)
[2017-10-02] MEDS: SUCRALFATE (100 MG/ML) 10ML CUP PO ×3 (05:46→18:00)
[2017-10-02 06:00] LABS: WHITE BLOOD COUNT 27.6 10^3/ul (4.8-10.8)
[2017-10-02 06:00] LABS: ABNORMAL IP MESSAGE 1; HEMATOCRIT 22.9 % (42.0-52.0); HEMOGLOBIN 7.5 g/dl (14.0-18.0); MEAN CORPUSCULAR HEMOGLOBIN 27.3 pg (29.0-33.0); MEAN CORPUSCULAR HGB CONC 32.8 g/dl (32.0-37.0); MEAN CORPUSCULAR VOLUME 83.3 fl (82.0-101.0); MEAN PLATELET VOLUME 9.8 fl (7.4-10.4); NUCLEATED RED BLOOD CELLS% 0.1 /100WBC (0.0-0.0); PLATELET COUNT 304 10^3/UL (140-415); POSITIVE DIFF @See below; RED BLOOD COUNT 2.75 10^6/ul (4.70-6.10); RED CELL DISTRIBUTION WIDTH 19.3 % (11.5-14.5)
[2017-10-02 06:03] LABS: ADD MAN DIFF? YES
[2017-10-02 06:24] LABS: ANION GAP 17 (8-16); BLOOD UREA NITROGEN 38 mg/dl (7-20); CALCIUM 7.1 mg/dl (8.4-10.2); CARBON DIOXIDE 19 mmol/L (21-31); CHLORIDE 102 mmol/L (97-110); CREATININE 5.48 mg/dl (0.61-1.24); GLUCOSE 116 mg/dl (70-220); POTASSIUM 4.5 mmol/L (3.5-5.1); SODIUM 133 mmol/L (135-144)
[2017-10-02 06:39] LABS: TROPONIN-I < 0.012 ng/ml (0.000-0.120)
[2017-10-02] MEDS: L ACIDOPHIL/B LACTIS/B LONGUM CAPSULE PO ×3 (08:15→18:00)
[2017-10-02] MEDS: HEPARIN 5,000 UNIT/0.5 ML VIAL SC (09:00)
[2017-10-02] MEDS: SOD CHLORIDE 0.9% 1,000 ML IV ×2 (09:23→23:09)
[2017-10-02] MEDS: LINEZOLID 600 MG/D5W (PMX) 300 ML IVPB ×2 (09:23→21:20)
[2017-10-02] MEDS: LEVETIRACETAM IV 750 MG in DEXTROSE 5% 100 ML IVPB ×2 (09:23→20:51)
[2017-10-02 09:39] LABS: ANISOCYTOSIS 1+ (0-0); BAND NEUTROPHILS #M 1.6 10^3/ul (0.0-0.6); BAND NEUTROPHILS % (M) 6 % (0-4); EOSINOPHILS % (M) 1 % (0-7); HYPOCHROMASIA 1+ (0-0); LYMPHOCYTES #M 1.1 10^3/ul (0.8-2.9); LYMPHOCYTES % (M) 4 % (15-51); MONOCYTE #M 2.2 10^3/ul (0.3-0.9); MONOCYTES % (M) 8 % (0-11); MYELOCYTES #M 0.2 10^3/ul (0.0-0.0); MYELOCYTES % (M) 1 % (0-0); PLATELET ESTIMATE NORMAL; POLYCHROMASIA 3+ (0-0); SEG NEUT #M 22.5 10^3/ul (1.6-7.5); SEGMENTED NEUTROPHILS (M) % 80 % (39-77); SMUDGE%M 1 % (0-0)
[2017-10-02] MEDS: ALBUMIN HUMAN 25% 100 ML IV (11:38)
[2017-10-02 12:36] LABS: PROTIME 18.4 Sec (11.9-14.9); PT RATIO 1.4
[2017-10-02] MEDS: HEPARIN 1000 UNITS/ML 10 ML INJ CATHETER (13:47)
[2017-10-02 14:44] LABS: PARTIAL THROMBOPLASTIN TIME 63.4 Sec (25.0-35.0)
[2017-10-02] MEDS: PHYTONADIONE 5 MG in DEXTROSE 5% 50 ML IVPB (18:59)
[2017-10-02] MEDS: ATORVASTATIN 20 MG TAB PO (21:00)
[2017-10-03] MEDS: METOCLOPRAMIDE 10 MG INJ IV ×4 (00:25→18:42)
[2017-10-03] MEDS: INSULIN ASPART [NOVOLOG] 3 ML PEN SC ×6 (00:33→20:45)
[2017-10-03] MEDS: SOD CHLORIDE 0.9% 1,000 ML IV ×2 (05:01→13:27)
[2017-10-03] MEDS: SUCRALFATE (100 MG/ML) 10ML CUP PO ×4 (05:10→18:00)
[2017-10-03] MEDS: PIPER-TAZO 2.25 GM (PMX) 50 ML IVPB ×3 (05:49→22:33)
[2017-10-03 05:57] LABS: ABNORMAL IP MESSAGE 1; HEMATOCRIT 23.9 % (42.0-52.0); HEMOGLOBIN 7.9 g/dl (14.0-18.0); MEAN CORPUSCULAR HEMOGLOBIN 27.2 pg (29.0-33.0); MEAN CORPUSCULAR HGB CONC 33.1 g/dl (32.0-37.0); MEAN CORPUSCULAR VOLUME 82.4 fl (82.0-101.0); MEAN PLATELET VOLUME 9.3 fl (7.4-10.4); NUCLEATED RED BLOOD CELLS% 0.1 /100WBC (0.0-0.0); PLATELET COUNT 266 10^3/UL (140-415); POSITIVE DIFF @See below; RED CELL DISTRIBUTION WIDTH 19.3 % (11.5-14.5)
[2017-10-03 05:57] LABS: WHITE BLOOD COUNT 25.6 10^3/ul (4.8-10.8)
[2017-10-03 06:01] LABS: ADD MAN DIFF? YES
[2017-10-03 06:17] LABS: INR 1.53; PROTIME 18.7 Sec (11.9-14.9); PT RATIO 1.5
[2017-10-03 06:18] LABS: PARTIAL THROMBOPLASTIN TIME 54.9 Sec (25.0-35.0)
[2017-10-03 06:32] LABS: ALANINE AMINOTRANSFERASE 65 IU/L (13-69); ALBUMIN 2.2 g/dl (3.3-4.9); ALBUMIN/GLOBULIN RATIO 0.61; ALKALINE PHOSPHATASE 1270 IU/L (42-121); ANION GAP 13 (8-16); ASPARTATE AMINO TRANSFERASE 206 IU/L (15-46); BILIRUBIN,INDIRECT 0.4 mg/dl (0-1.1); BILIRUBIN,TOTAL 2.5 mg/dl (0.2-1.3); BLOOD UREA NITROGEN 21 mg/dl (7-20); CALCIUM 7.9 mg/dl (8.4-10.2); CARBON DIOXIDE 25 mmol/L (21-31); CHLORIDE 100 mmol/L (97-110); CREATININE 3.96 mg/dl (0.61-1.24); GLUCOSE 130 mg/dl (70-220); SODIUM 134 mmol/L (135-144); TOTAL PROTEIN 5.8 g/dl (6.1-8.1)
[2017-10-03 07:15] LABS: ANISOCYTOSIS 1+ (0-0); BAND NEUTROPHILS #M 0.2 10^3/ul (0.0-0.6); BAND NEUTROPHILS % (M) 1 % (0-4); EOSINOPHILS % (M) 1 % (0-7); HYPOCHROMASIA 1+ (0-0); LYMPHOCYTES #M 1.2 10^3/ul (0.8-2.9); LYMPHOCYTES % (M) 5 % (15-51); MICROCYTOSIS 1+ (0-0); MONOCYTE #M 2.3 10^3/ul (0.3-0.9); MONOCYTES % (M) 9 % (0-11); PLATELET ESTIMATE NORMAL; POLYCHROMASIA 3+ (0-0); PROMYELOCYTES #M 0.2 10^3/ul (0-0); PROMYELOCYTES % (M) 1 % (0-0); REACTIVE LYMPHOCYTES #M 0.2 10^3/ul (0.0-0.0); REACTIVE LYMPHOCYTES% (M) 1 % (0-0); SEGMENTED NEUTROPHILS (M) % 82 % (39-77); SMUDGE%M 12 % (0-0)
[2017-10-03] MEDS: L ACIDOPHIL/B LACTIS/B LONGUM CAPSULE PO ×3 (08:15→18:00)
[2017-10-03 09:03] LABS: INR 1.48; PROTIME 18.2 Sec (11.9-14.9); PT RATIO 1.4
[2017-10-03 09:04] LABS: PARTIAL THROMBOPLASTIN TIME 52.5 Sec (25.0-35.0)
[2017-10-03 09:46] LABS: TYPE AND SCREEN 1 1
[2017-10-03] MEDS: LIDOCAINE 1% (MDV) 10 ML INJ (11:00)
[2017-10-03] MEDS: MIDAZOLAM 1 MG/ML 2 ML INJ (11:16)
[2017-10-03] MEDS: FENTAnyl 50 MCG/ML VIAL (11:16)
[2017-10-03] MEDS: PROPOFOL 40 ML (11:16)
[2017-10-03 13:56] LABS: FLD RBC 12000 /uL; FLD WBC 6285 /cmm
[2017-10-03] MEDS: LEVETIRACETAM IV 750 MG in DEXTROSE 5% 100 ML IVPB ×2 (14:07→23:14)
[2017-10-03 14:17] LABS: FLUID AMYLASE < 30 U/L; FLUID GLUCOSE 22 mg/dl; FLUID TYPE ABDOMINAL FLUID
[2017-10-03] MEDS: LINEZOLID 600 MG/D5W (PMX) 300 ML IVPB ×2 (14:24→23:55)
[2017-10-03 14:50] LABS: FLD CLARITY CLOUDY; FLD COLOR GREEN; PATH REVIEW? YES
[2017-10-03 14:50] LABS: FLD TYPE ABDOMINAL
[2017-10-03 14:58] LABS: FLD MN% 2.2 %; FLD PMN% 97.8 %
[2017-10-03] MEDS ORDERED: DEXTROSE 5%-0.9% NACL 1,000 ML IV (16:00)
[2017-10-03] MEDS: DEXTROSE 5%-0.45% NACL 1,000 ML IV (16:30)
[2017-10-03] MEDS: ATORVASTATIN 20 MG TAB PO (20:39)
[2017-10-03] MEDS: LORAZEPAM 2 MG INJ IV (23:55)
[2017-10-04] MEDS: METOCLOPRAMIDE 10 MG INJ IV ×5 (00:11→23:57)
[2017-10-04] MEDS: INSULIN ASPART [NOVOLOG] 3 ML PEN SC ×6 (01:14→22:02)
[2017-10-04] MEDS: SUCRALFATE (100 MG/ML) 10ML CUP PO ×4 (05:19→17:11)
[2017-10-04] MEDS: PIPER-TAZO 2.25 GM (PMX) 50 ML IVPB ×3 (05:32→23:39)
[2017-10-04] MEDS: L ACIDOPHIL/B LACTIS/B LONGUM CAPSULE PO ×3 (08:15→17:11)
[2017-10-04] MEDS: LEVETIRACETAM IV 750 MG in DEXTROSE 5% 100 ML IVPB ×2 (08:56→23:18)
[2017-10-04] MEDS: LINEZOLID 600 MG/D5W (PMX) 300 ML IVPB ×2 (08:57→21:44)
[2017-10-04 10:54] LABS: ADD MAN DIFF? NO
[2017-10-04 10:58] LABS: BASOPHIL # 0.1 10^3/ul (0.0-0.1); BASOPHILS % 0.3 % (0.0-2.0); EOSINOPHILS # 0.2 10^3/ul (0.0-0.5); EOSINOPHILS % 0.9 % (0.0-7.0); HEMATOCRIT 27.2 % (42.0-52.0); HEMOGLOBIN 8.8 g/dl (14.0-18.0); LYMPHOCYTES # 0.8 10^3/ul (0.8-2.9); LYMPHOCYTES % 4.4 % (15.0-51.0); MEAN CORPUSCULAR HGB CONC 32.4 g/dl (32.0-37.0); MEAN CORPUSCULAR VOLUME 83.4 fl (82.0-101.0); MONOCYTES % 5.4 % (0.0-11.0); NEUTROPHIL # 16.4 10^3/ul (1.6-7.5); NEUTROPHILS % 87.3 % (39.0-77.0); NUCLEATED RED BLOOD CELLS% 0.1 /100WBC (0.0-0.0); PLATELET COUNT 159 10^3/UL (140-415); RED BLOOD COUNT 3.26 10^6/ul (4.70-6.10); RED CELL DISTRIBUTION WIDTH 18.9 % (11.5-14.5)
[2017-10-04 10:58] LABS: WHITE BLOOD COUNT 18.7 10^3/ul (4.8-10.8)
[2017-10-04 11:15] LABS: ALANINE AMINOTRANSFERASE 56 IU/L (13-69); ALBUMIN 2.1 g/dl (3.3-4.9); ALBUMIN/GLOBULIN RATIO 0.61; ALKALINE PHOSPHATASE 1148 IU/L (42-121); ANION GAP 15 (8-16); ASPARTATE AMINO TRANSFERASE 216 IU/L (15-46); BILIRUBIN,INDIRECT 0.5 mg/dl (0-1.1); BILIRUBIN,TOTAL 3.4 mg/dl (0.2-1.3); BLOOD UREA NITROGEN 29 mg/dl (7-20); CALCIUM 7.6 mg/dl (8.4-10.2); CARBON DIOXIDE 22 mmol/L (21-31); CHLORIDE 99 mmol/L (97-110); CREATININE 4.76 mg/dl (0.61-1.24); GLUCOSE 195 mg/dl (70-220); SODIUM 132 mmol/L (135-144); TOTAL PROTEIN 5.5 g/dl (6.1-8.1)
[2017-10-04] MEDS: morphine LIQ (10 MG/5 ML) CUP PO ×2 (12:37→21:51)
[2017-10-04] MEDS ORDERED: HEPARIN 1000 UNITS/ML 10 ML INJ HE (13:00)
[2017-10-04] MEDS: ALBUMIN HUMAN 25% 50 ML IV (14:40)
[2017-10-04] MEDS: DEXTROSE 5%-0.45% NACL 1,000 ML IV (15:26)
[2017-10-04] MEDS: HEPARIN 1000 UNITS/ML 10 ML INJ CATHETER (18:17)
[2017-10-04] MEDS: ATORVASTATIN 20 MG TAB PO (21:00)
[2017-10-05] MEDS: LORAZEPAM 2 MG INJ IV (00:34)
[2017-10-05] MEDS: INSULIN ASPART [NOVOLOG] 3 ML PEN SC ×6 (00:36→21:19)
[2017-10-05] MEDS: METOCLOPRAMIDE 10 MG INJ IV ×4 (05:15→23:44)
[2017-10-05] MEDS: PIPER-TAZO 2.25 GM (PMX) 50 ML IVPB ×3 (05:27→22:05)
[2017-10-05] MEDS: SUCRALFATE (100 MG/ML) 10ML CUP PO ×5 (05:29→23:44)
[2017-10-05 06:25] LABS: ADD MAN DIFF? NO; BASOPHILS % 0.2 % (0.0-2.0); EOSINOPHILS # 0.2 10^3/ul (0.0-0.5); EOSINOPHILS % 0.9 % (0.0-7.0); HEMATOCRIT 26.8 % (42.0-52.0); HEMOGLOBIN 8.6 g/dl (14.0-18.0); LYMPHOCYTES # 0.7 10^3/ul (0.8-2.9); LYMPHOCYTES % 4.3 % (15.0-51.0); MEAN CORPUSCULAR HEMOGLOBIN 26.3 pg (29.0-33.0); MEAN CORPUSCULAR HGB CONC 32.1 g/dl (32.0-37.0); MEAN PLATELET VOLUME 9.7 fl (7.4-10.4); MONOCYTE # 0.8 10^3/ul (0.3-0.9); MONOCYTES % 5.1 % (0.0-11.0); NEUTROPHIL # 14.6 10^3/ul (1.6-7.5); NEUTROPHILS % 87.9 % (39.0-77.0); PLATELET COUNT 136 10^3/UL (140-415); POSITIVE DIFF @See below; RED BLOOD COUNT 3.27 10^6/ul (4.70-6.10)
[2017-10-05 06:25] LABS: WHITE BLOOD COUNT 16.6 10^3/ul (4.8-10.8)
[2017-10-05 07:07] LABS: ANION GAP 17 (8-16); BLOOD UREA NITROGEN 19 mg/dl (7-20); CALCIUM 7.3 mg/dl (8.4-10.2); CARBON DIOXIDE 21 mmol/L (21-31); CHLORIDE 104 mmol/L (97-110); CREATININE 3.07 mg/dl (0.61-1.24); GLUCOSE 163 mg/dl (70-220); POTASSIUM 4.3 mmol/L (3.5-5.1); SODIUM 138 mmol/L (135-144)
[2017-10-05] MEDS: L ACIDOPHIL/B LACTIS/B LONGUM CAPSULE PO ×3 (08:15→18:00)
[2017-10-05] MEDS: LINEZOLID 600 MG/D5W (PMX) 300 ML IVPB ×2 (08:53→21:12)
[2017-10-05] MEDS: LEVETIRACETAM IV 750 MG in DEXTROSE 5% 100 ML IVPB ×2 (13:04→20:55)
[2017-10-05] MEDS: DEXTROSE 5%-0.45% NACL 1,000 ML IV ×2 (16:00→21:11)
[2017-10-05] MEDS: ATORVASTATIN 20 MG TAB PO (21:12)
[2017-10-06] MEDS: INSULIN ASPART [NOVOLOG] 3 ML PEN SC ×6 (00:49→21:22)
[2017-10-06] MEDS: LORAZEPAM 2 MG INJ IV (00:50)
[2017-10-06] MEDS: ALBUMIN HUMAN 25% 100 ML IV ×3 (03:08→23:51)
[2017-10-06] MEDS: SUCRALFATE (100 MG/ML) 10ML CUP PO ×4 (05:59→23:48)
[2017-10-06] MEDS: METOCLOPRAMIDE 10 MG INJ IV ×4 (06:02→23:48)
[2017-10-06] MEDS: PIPER-TAZO 2.25 GM (PMX) 50 ML IVPB (06:02)
[2017-10-06 06:12] LABS: ADD MAN DIFF? NO
[2017-10-06 06:19] LABS: WHITE BLOOD COUNT 19.2 10^3/ul (4.8-10.8)
[2017-10-06 06:19] LABS: ABNORMAL IP MESSAGE 1; BASOPHIL # 0.1 10^3/ul (0.0-0.1); BASOPHILS % 0.3 % (0.0-2.0); EOSINOPHILS # 0.1 10^3/ul (0.0-0.5); EOSINOPHILS % 0.6 % (0.0-7.0); HEMATOCRIT 25.1 % (42.0-52.0); HEMOGLOBIN 8.1 g/dl (14.0-18.0); LYMPHOCYTES # 0.8 10^3/ul (0.8-2.9); LYMPHOCYTES % 4.3 % (15.0-51.0); MEAN CORPUSCULAR HEMOGLOBIN 27.1 pg (29.0-33.0); MEAN CORPUSCULAR HGB CONC 32.3 g/dl (32.0-37.0); MEAN CORPUSCULAR VOLUME 83.9 fl (82.0-101.0); MEAN PLATELET VOLUME 10.2 fl (7.4-10.4); MONOCYTE # 0.8 10^3/ul (0.3-0.9); MONOCYTES % 4.2 % (0.0-11.0); NEUTROPHIL # 17.1 10^3/ul (1.6-7.5); NEUTROPHILS % 88.7 % (39.0-77.0); NUCLEATED RED BLOOD CELLS% 0.1 /100WBC (0.0-0.0); PLATELET COUNT 98 10^3/UL (140-415); POSITIVE DIFF @See below; RED BLOOD COUNT 2.99 10^6/ul (4.70-6.10); RED CELL DISTRIBUTION WIDTH 19.3 % (11.5-14.5)
[2017-10-06 06:35] LABS: PARTIAL THROMBOPLASTIN TIME 54.1 Sec (25.0-35.0)
[2017-10-06 06:41] LABS: ALANINE AMINOTRANSFERASE 84 IU/L (13-69); ALBUMIN 2.5 g/dl (3.3-4.9); ALBUMIN/GLOBULIN RATIO 0.71; ALKALINE PHOSPHATASE 1150 IU/L (42-121); ANION GAP 20 (8-16); ASPARTATE AMINO TRANSFERASE 546 IU/L (15-46); BILIRUBIN,INDIRECT 0.8 mg/dl (0-1.1); BILIRUBIN,TOTAL 4.4 mg/dl (0.2-1.3); BLOOD UREA NITROGEN 22 mg/dl (7-20); CALCIUM 7.9 mg/dl (8.4-10.2); CARBON DIOXIDE 22 mmol/L (21-31); CHLORIDE 101 mmol/L (97-110); CREATININE 3.91 mg/dl (0.61-1.24); GLUCOSE 147 mg/dl (70-220); POTASSIUM 3.9 mmol/L (3.5-5.1); SODIUM 139 mmol/L (135-144)
[2017-10-06 06:42] LABS: INR 1.32; PROTIME 16.6 Sec (11.9-14.9); PT RATIO 1.3
[2017-10-06] MEDS: LINEZOLID 600 MG/D5W (PMX) 300 ML IVPB (08:09)
[2017-10-06] MEDS: L ACIDOPHIL/B LACTIS/B LONGUM CAPSULE PO ×3 (08:10→17:35)
[2017-10-06] MEDS: LEVETIRACETAM IV 750 MG in DEXTROSE 5% 100 ML IVPB ×2 (09:22→22:06)
[2017-10-06] MEDS ORDERED: AZTREONAM 1 GM/NS (PMX) 50 ML IVPB (09:30)
[2017-10-06] MEDS ORDERED: AZTREONAM 0.5 GM in SOD CHLORIDE 0.9% 50 ML IV (11:00)
[2017-10-06] MEDS: LIDOCAINE 1% (MDV) 10 ML INJ (11:11)
[2017-10-06] MEDS: IOHEXOL 300MG/ML 30 ML BTL (11:12)
[2017-10-06] MEDS: SOD CHLORIDE 0.9% 250 ML (11:12)
[2017-10-06] MEDS: TIGECYCLINE 100 MG in DEXTROSE 5% 100 ML IVPB (13:06)
[2017-10-06] MEDS: FLUCONAZOLE 200 MG/NS (PMX) 100 ML IVPB (13:08)
[2017-10-06 16:53] LABS: AMMONIA < 9 umol/l (9-30)
[2017-10-06] MEDS: AZTREONAM 0.5 GM in SOD CHLORIDE 0.9% 50 ML IV (21:05)
[2017-10-06] MEDS: DEXTROSE 5%-0.45% NACL 1,000 ML IV (21:06)
[2017-10-06] MEDS: ATORVASTATIN 20 MG TAB PO (21:06)
[2017-10-06] MEDS: MIDODRINE 5 MG TAB PO (22:04)
[2017-10-06] MEDS: TIGECYCLINE 50 MG in DEXTROSE 5% 100 ML IVPB (22:59)
[2017-10-07] MEDS: INSULIN ASPART [NOVOLOG] 3 ML PEN SC ×4 (01:08→13:00)
[2017-10-07] MEDS: SOD CHLORIDE 0.9% 500 ML IV (02:47)
[2017-10-07] MEDS: METOCLOPRAMIDE 10 MG INJ IV ×2 (05:40→11:31)
[2017-10-07] MEDS: SUCRALFATE (100 MG/ML) 10ML CUP PO ×3 (05:40→11:28)
[2017-10-07 06:03] LABS: ADD MAN DIFF? NO
[2017-10-07 06:05] LABS: ABNORMAL IP MESSAGE 1; BASOPHILS % 0.2 % (0.0-2.0); EOSINOPHILS % 0.2 % (0.0-7.0); HEMATOCRIT 22.3 % (42.0-52.0); HEMOGLOBIN 7.1 g/dl (14.0-18.0); LYMPHOCYTES # 0.7 10^3/ul (0.8-2.9); LYMPHOCYTES % 3.7 % (15.0-51.0); MEAN CORPUSCULAR HEMOGLOBIN 26.7 pg (29.0-33.0); MEAN CORPUSCULAR HGB CONC 31.8 g/dl (32.0-37.0); MEAN CORPUSCULAR VOLUME 83.8 fl (82.0-101.0); MEAN PLATELET VOLUME 9.5 fl (7.4-10.4); MONOCYTE # 0.7 10^3/ul (0.3-0.9); MONOCYTES % 3.9 % (0.0-11.0); NEUTROPHIL # 16.1 10^3/ul (1.6-7.5); NEUTROPHILS % 90.1 % (39.0-77.0); PLATELET COUNT 57 10^3/UL (140-415); POSITIVE DIFF @See below; RED BLOOD COUNT 2.66 10^6/ul (4.70-6.10); RED CELL DISTRIBUTION WIDTH 19.8 % (11.5-14.5)
[2017-10-07 06:05] LABS: WHITE BLOOD COUNT 17.9 10^3/ul (4.8-10.8)
[2017-10-07 06:42] LABS: ALANINE AMINOTRANSFERASE 158 IU/L (13-69); ALBUMIN 2.4 g/dl (3.3-4.9); ALBUMIN/GLOBULIN RATIO 0.85; ALKALINE PHOSPHATASE 846 IU/L (42-121); ANION GAP 18 (8-16); BILIRUBIN,INDIRECT 0.7 mg/dl (0-1.1); BILIRUBIN,TOTAL 4.8 mg/dl (0.2-1.3); BLOOD UREA NITROGEN 23 mg/dl (7-20); CALCIUM 7.8 mg/dl (8.4-10.2); CARBON DIOXIDE 21 mmol/L (21-31); CHLORIDE 104 mmol/L (97-110); CREATININE 4.31 mg/dl (0.61-1.24); GLUCOSE 141 mg/dl (70-220); POTASSIUM 4.3 mmol/L (3.5-5.1); SODIUM 139 mmol/L (135-144); TOTAL PROTEIN 5.2 g/dl (6.1-8.1)
[2017-10-07 07:05] LABS: ASPARTATE AMINO TRANSFERASE 1237 IU/L (15-46)
[2017-10-07] MEDS: L ACIDOPHIL/B LACTIS/B LONGUM CAPSULE PO ×2 (07:59→11:28)
[2017-10-07] MEDS: MIDODRINE 5 MG TAB PO ×2 (08:01→13:00)
[2017-10-07] MEDS: TIGECYCLINE 50 MG in DEXTROSE 5% 100 ML IVPB (08:03)
[2017-10-07] MEDS: LEVETIRACETAM IV 750 MG in DEXTROSE 5% 100 ML IVPB (09:20)
[2017-10-07] MEDS: AZTREONAM 0.5 GM in SOD CHLORIDE 0.9% 50 ML IV (10:18)
[2017-10-07] MEDS: FLUCONAZOLE 200 MG/NS (PMX) 100 ML IVPB (11:31)
[2017-10-07] MEDS ORDERED: ACETAMINOPHEN 650 MG SUPP PR (17:30)
[2017-10-07] MEDS ORDERED: ATROPINE SULFATE 1% 5ML SL (17:30)
[2017-10-07] MEDS ORDERED: morphine LIQ (20 MG/ML PO SYG) SL (17:30)
[2017-10-07] MEDS ORDERED: LORAZEPAM 2 MG INJ IV (17:30)
[2017-10-07] MEDS ORDERED: ARTIFICIAL TEARS 15 ML OPH BOTH EYES (18:30)
[2017-10-07] MEDS ORDERED: DIMETHICONE STICK TOP (18:30)
[2017-10-07] MEDS ORDERED: TIGECYCLINE 50 MG in SOD CHLORIDE 0.9% 100 ML IVPB (21:00)
== END 2017-10-07 20:30 | disposition expired | DRG 314 ==
LOC: MS2 09-26 22:25 → E/R 10:34 → PP2 12:26
PROC: 5A1D70Z Performance of Urinary Filtration, Intermittent, Less than 6 Hours Per Day (ICD-10-PCS; 2017-09-21)
PROC: 05PYX3Z Removal of Infusion Device from Upper Vein, External Approach (ICD-10-PCS; principal; 2017-09-22)
PROC: 30233N1 Transfusion of Nonautologous Red Blood Cells into Peripheral Vein, Percutaneous Approach (ICD-10-PCS; 2017-09-22)
PROC: 06HM33Z Insertion of Infusion Device into Right Femoral Vein, Percutaneous Approach (ICD-10-PCS; 2017-09-29)
PROC: 30233K1 Transfusion of Nonautologous Frozen Plasma into Peripheral Vein, Percutaneous Approach (ICD-10-PCS; 2017-10-03)
PROC: 0W9G30Z Drainage of Peritoneal Cavity with Drainage Device, Percutaneous Approach (ICD-10-PCS; 2017-10-03)
PROC: 0W2GX0Z Change Drainage Device in Peritoneal Cavity, External Approach (ICD-10-PCS; 2017-10-06)
DX: T82.7XXA Infection and inflammatory reaction due to other cardiac and vascular devices, implants and grafts, initial encounter (principal); A41.53 Sepsis due to Serratia; N18.6 End stage renal disease; G93.41 Metabolic encephalopathy; K65.1 Peritoneal abscess; R65.21 Severe sepsis with septic shock; I12.0 Hypertensive chronic kidney disease with stage 5 chronic kidney disease or end stage renal disease; C78.89 Secondary malignant neoplasm of other digestive organs; N17.9 Acute kidney failure, unspecified; C22.0 Liver cell carcinoma; B18.2 Chronic viral hepatitis C; E11.22 Type 2 diabetes mellitus with diabetic chronic kidney disease; D69.6 Thrombocytopenia, unspecified; D63.1 Anemia in chronic kidney disease; E78.5 Hyperlipidemia, unspecified; I46.8 Cardiac arrest due to other underlying condition; K72.90 Hepatic failure, unspecified without coma; K52.9 Noninfective gastroenteritis and colitis, unspecified; K83.8 Other specified diseases of biliary tract; B95.2 Enterococcus as the cause of diseases classified elsewhere; Z16.21 Resistance to vancomycin; Z66 Do not resuscitate; Z99.2 Dependence on renal dialysis; Z87.891 Personal history of nicotine dependence; Z79.4 Long term (current) use of insulin
CPT/HCPCS: 36430; 49423; 70450; 71045; 74018; 74176; 74181; 76705; 77012; 78806; 80048; 80053; 80061; 80202; 81001; 82140; 82150; 82436; 82540; 82565; 82575; 82945; 82962; 83036; 83605; 83690; 83735; 84100; 84133; 84300; 84439; 84443; 84484; 85025; 85610; 85730; 86078; 86850; 86900; 86901; 86920; 87040; 87045; 87070; 87075; 87081; 87086; 87340; 89051; 90935; 92610; 93005; 93306; 96374; 96375; 96376; 99285-25